=== PATIENT | female | born 1940 | race Caucasian/White ===

== ENCOUNTER 2022-04-24 13:34 | Emergency (ER) | payer MEDICARE, SELFPAY ==
[2022-04-24 13:42] VITALS: BP 139/85; PULSE 86; RESP 20; TEMP 36.6; O2SAT 99
[2022-04-24 13:45] VITALS: BP 139/85; PULSE 86; RESP 20; TEMP 36.6; O2SAT 99
--- NOTE | 2022-04-24 13:59 | ED.SKABFB ---
HPI - Skin/Abscess/Foreign Bdy General Chief complaint: Skin/Abscess/Foreign Body Stated complaint: hives Time Seen by Provider: 04/24/22 13:59 Source: patient, family, RN notes reviewed and old records reviewed Mode of arrival: ambulatory Limitations: no limitations History of Present Illness HPI narrative: 81 year old female who presents to [facility] with complaints of having hives all over body which started on Tuesday after her shower. She reports that she thought she could manage on own initially with Benadryl, Zyrtec and some Triamcinolone ointment and OTC hydrocortisone ointment. Patient reports that she called her doctor and he ordered her a Medrol dose pack on Tuesday and has had 2 days of medication but rash is so itchy she came to try to get a shot. Patient reports that the only thing different that she has taken is she started red yeast rice COQ10 supplement 2 weeks ago. Patient has large red hives on her body which are itching, denies any shortness of breath or any trouble swallowing, complaint: other (hives) Onset (ago): day(s) (3) Location: generalized Treatments prior to arrival: OTC topical medication, Benadryl, corticosteroid and other (zyrtec) Related Data Home Medications Medication Instructions Recorded Confirmed methylprednisolone 4 mg tablets in See Rx Instructions .Route .COMPLEX 04/24/22 04/24/22 a dose pack trazodone 50 mg tablet 50 mg PO DAILY 04/24/22 04/24/22 Allergies Allergy/AdvReac Type Severity Reaction Status Date / Time latex Allergy Unknown Rash Verified 04/24/22 13:43 Review of Systems Review of Systems: CONSTITUTIONAL: Denies fever, chills, or sweats. CARDIOVASCULAR: Denies chest pain, palpitations, or edema. RESPIRATORY: Denies cough or dyspnea. SKIN: Reports scattered round raised red hives generalized on body since Tuesday MUSCULOSKELETAL: Denies joint pain or myalgia. NEUROLOGIC: Denies headache, numbness, or weakness. All systems reviewed & are unremarkable except as noted in HPI and below PMFSH Past Medical History Medical History Adult hypothyroidism Chronic insomnia COPD (chronic obstructive pulmonary disease) Depression Eosinophilic colitis Pulmonary nodules/lesions, multiple Surgical History Surgical History History of cholecystectomy Family History Family History Grandparent Cerebrovascular accident Carcinoma of colon Father Family history of diabetes mellitus in first degree relative Family history of lung disease Family history of obesity Hypertension, Onset Age: 91 Family history of eczema Family history of alcoholism Family history of cardiovascular disease, Onset Age: 91 Family history of congestive heart failure, Onset Age: 91 Mother Family history of obesity Hypertension, Onset Age: 71 Carcinoma of colon, Onset Age: 55 Family history of diabetes mellitus in first degree relative Patient's mother is Diabetes mellitus, Onset Age: 71 Family history of malignant neoplasm, Onset Age: 71 Sibling Family history of obesity Hypertension Patient's sister is in good health Patient's brother is in good health Family history of diabetes mellitus in first degree relative Diabetes mellitus Other Family history of allergic disorder Family history of osteoporosis Social History Social History Smoking status: Former smoker Tobacco type: cigarettes Second hand tobacco smoke exposure: No Smoking end date: 03/21/18 Alcohol intake: never Substance use: never Substance use type: does not use Living arrangements: with family Occupation/Education: retired Gender identity (if verbalized by the patient): Female Comments At time of signature, agre
[2022-04-24] MEDS: methylPREDNISolone ACETATE 80 MG/ML VIAL IM (14:11)
== END 2022-04-24 14:30 | disposition home or self-care (01) ==
PROVIDERS: Emergency Provider Registered Nurse; PCP Internal Medicine
DX: L50.9 Urticaria, unspecified (principal); Z87.891 Personal history of nicotine dependence; E03.9 Hypothyroidism, unspecified; J44.9 Chronic obstructive pulmonary disease, unspecified; F32.A Depression, unspecified
CPT/HCPCS: 96372; 99213; G0463; J1040

== ENCOUNTER 2022-08-27 09:24 | Outpatient (CLI) | payer MEDICARE, SELFPAY ==
--- NOTE | 2022-08-27 11:00 | NEURO_ITS ---
Impression: Patient reports a history of numbness in the lower extremities and balance issues. 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 # Needle/EMG exam not requested. # Clinical correlation recommended. Nerve Conduction Studies Anti Sensory Summary Table Stim Site NR Peak (ms) P-T Amp (?V) Site1 Site2 Delta-P (ms) Dist (cm) Peterson (m/s) Left Sup Fibular Anti Sensory (Ant Lat Mall) 14 cm 3.6 7.3 14 cm Ant Lat Mall 3.6 16.0 44 Right Sup Fibular Anti Sensory (Ant Lat Mall) 14 cm 3.5 10.6 14 cm Ant Lat Mall 3.5 16.0 46 Left Sural Anti Sensory (Lat Mall) Calf 3.3 18.0 Calf Lat Mall 3.3 16.0 48 Right Sural Anti Sensory (Lat Mall) Calf 3.3 3.1 Calf Lat Mall 3.3 16.0 48 Motor Summary Table Stim Site NR Onset (ms) O-P Amp (mV) Site1 Site2 Delta-0 (ms) Dist (cm) Peterson (m/s) Left Peroneal Motor (Vastus Med) Ankle 5.4 2.7 Popit Ankle 9.6 41.0 43 Popit 15.0 2.2 B Fib Ankle 7.3 31.0 42 B Fib 12.7 2.2 Right Peroneal Motor (Vastus Med) Ankle 5.5 1.4 Popit Ankle 9.0 41.0 46 Popit 14.5 0.9 B Fib Ankle 7.0 30.0 43 B Fib 12.5 0.8 Left Tibial Motor (Abd Howard Brev) Ankle 5.2 3.4 Knee Ankle 8.2 40.0 49 Knee 13.4 3.6 Right Tibial Motor (Abd Howard Brev) Ankle 5.0 2.7 Knee Ankle 8.8 40.0 45 Knee 13.8 2.7 F Wave Studies NR F-Lat (ms) L-R F-Lat (ms) Left Peroneal (Mrkrs) (EDB) 54.58 1.75 Right Peroneal (Mrkrs) (EDB) 52.83 1.75 Left Tibial (Mrkrs) Run #2 (Abd Hallucis) 53.68 0.10 Right Tibial (Mrkrs) (Abd Hallucis) 53.58 0.10 MTDD
== END 2022-08-27 09:25 | disposition home or self-care (01) ==
PROVIDERS: PCP Internal Medicine; Visit Provider Internal Medicine
DX: G62.9 Polyneuropathy, unspecified (principal)
CPT/HCPCS: 95910

== ENCOUNTER 2025-01-15 14:57 | Outpatient (CLI) | payer MEDICARE, SELFPAY ==
--- OUTSIDE RECORDS SUMMARY | 2025-01-15 17:20 | XMS_ITS | Clinical Summary ---
Author Organization [facility] Address [address] [place] [address] Phone Care Team Providers Care Culinary Artist Name Role Phone Stacy Talbot Darron GARCIA, PAOLA Primary Care Provider Allergies No known active allergies Medications LEVOTHYROXINE SODIUM PO Take 50 mg by mouth 2 times daily. Active BUDESONIDE PO Take by mouth. Active Social History Tobacco Use Types Packs/Day Years Used Date Smoking Tobacco: Every Day Cigarettes Smokeless Tobacco: Never Alcohol Use Standard Drinks/Week Comments Not Currently 0 (1 standard drink = 0.6 oz pur e alcohol) Comments Unknown Sex and Gender Information Value Date Recorded Sex Assigned at Not on file Legal Sex Female 11:16 PM CDT Gender Identity Not on file Sexual Orientation Not on file Last Filed Vital Signs Vital Sign Reading Time Taken Comments Blood Pressure 97/55 04/10/2020 3:30 PM QUALITY MANAGEMENT NURSE Pulse 61 04/10/2020 3:30 PM QUALITY MANAGEMENT NURSE Temperature 36.7 C (98 F) 04/10/2020 2:11 PM QUALITY MANAGEMENT NURSE Respiratory Rate 21 04/10/2020 3:30 PM QUALITY MANAGEMENT NURSE Oxygen Saturation 95% 04/10/2020 3:30 PM QUALITY MANAGEMENT NURSE Inhaled Oxygen Concentration - - Weight 47.6 kg (105 lb) 04/10/2020 2:12 PM QUALITY MANAGEMENT NURSE Height 162.6 cm (5' 4) 04/10/2020 2:12 PM QUALITY MANAGEMENT NURSE Body Mass Index 18.02 04/10/2020 2:12 PM QUALITY MANAGEMENT NURSE Plan of Treatment Health Maintenance Due Date Last Done Comments Hepatitis C Virus (HCV) Screening 1940 TdaP Immunization 1940 Pneumococcal Immunization (50+ years) (1 of 1 - PCV) 1990 Respiratory Syncytial Virus (RSV) Immunization (Adult) (1 - 1-dose 75+ series) 08/16/2015 Medicare Initial AWV [id number] 03/21/2021 Influenza Immunization (#1) 2024 10/0 04/2019, 12/21/2019, 12/30/2018, Additional history exists SARS-COV-2 Immunization (2024- season) 2024 01/14/2021, 05/23/2020, 05/03/2020 Zoster Immunization Completed 10/04/2017, 8 Hepatitis B Immunization Aged Out No longer eligible based on patient's age to complete this topic Human Papillomavirus (HPV) Immunization Aged Out No longer eligible based on patient's age to complete this topic Meningococcal Immunization (ACWY) Aged Out No longer eligible based on patient's age to complete this topic Rotavirus Immunization Aged Out No lo nger eligible based on patient's age to complete [place] [address] MEDICARE C [facility] [place] [id number] Care Teams Culinary Artist Relationship Specialty Start Date End Date Stacy Talbot, MANAGER FIBER, [employer] [address] [place] [address] PCP - General Family Medicine 04/10/20
--- OUTSIDE RECORDS SUMMARY | 2025-01-15 17:20 | XMS_ITS | Data Portability ---
Author Organization [facility] Photoblog, Main Office Address [address] [place] [address] Assessment No assessment recorded. Plan of Treatment Reminders Order Date Submit Date Provider Last Modified By Organization Details Last Modified Time Details Appointments None recorded. Lab vitamin D, 25-hydrox y, total, serum [address] [facility], [address] [place], [address], 5 11:20:57 C-reactiv e protein, quantitat kavin, serum or plasma [address] [facility], [address] [place], [address], 5 11:20:57 lipid panel, serum [facility], [address] [place], [address], 5 17:05:18 CMP, serum or plasma [facility], [address] [place], [address], 5 17:05:25 CBC w/ auto diff [facility] Out[facility] Lab, [address] [place], [address], 5 15:22:41 TSH, serum or plasma [facility], [address] [place], [address], 5 17:25:44 T4, free, serum 025 025 [facility] Outpatient Lab, [address] [place], [address], 5 17:10:34 vitamin D, 25-hydrox y, total, serum [id number] [place] [address] Outpatient Lab, [address] [place], [address], 5 14:57:09 lipid panel, serum [id number] [place] [address] Outpatient Lab, [address] [place], [address], 5 14:57:07 CMP, serum or plasma [id number] [place] [address] Outpatient Lab, [address] [place], [address], 5 14:57:08 TSH, serum or plasma [id number] [place] [address] Outpatient Lab, [address] [place], [address], 5 14:57:08 T4, free, serum [id number] [place] [address] Outpatient Lab, [address] [place], [address], 5 14:57:08 CBC w/ auto diff [id number] [place] [address] Outpatient Lab, [address] [place], [address], 5 14:57:08 lipid panel, serum 024 024 [facility] Outpatient Lab, [address] [place], [address], 4 13:36:27 CMP, serum or plasma 024 [facility] Outpatient Lab, [address] [place], [address], 4 13:36:39 TSH, serum or plasma 024 [facility] Outpatient Lab, [address] [place], [address], 4 13:42:17 T4, free, serum 024 [facility] Outpatient Lab, [address] [place], [address], 4 13:36:42 CBC w/ auto diff 024 [facility] Outpatient Lab, [address] [place], [address], 4 12:48:14 TSH, serum or plasma 023 023 [facility] Outpatient Lab, [address] [place], [address], 3 18:25:44 T4, free, serum 023 023 [facility] Outpatient Lab, [address] [place], [address], 3 18:22:41 CMP, serum or plasma 023 [facility] Outpatient Lab, [address] [place], [address], 3 18:26:37 CBC w/ auto diff 023 023 [facility] Outpatient Lab, [address] [place], [address], 3 15:06:15 vitamin B12, serum 023 023 [facility], [address] [place], [address], 18:43:12 Referral None recorded. Procedures None recorded. Surgeries None recorded. Imaging None recorded. Medication Orders None recorded. Patient TargetsNo targets recorded. Patient Instructions Encounter Date Encounter Id Patient Instructions Last Modified By Organization Details Last Modified Time 01/14/2023 [id number] Follow-up collagenous colitis -hypothyroidism -neuropathy. All clinically stable. Will check blood work in the form of CBC, CMP, lipid and B12 level. Continue on current Rx I recommended use of a cane or walker to assist her in ambulation particularly when walking outside or on uneven surfaces. Also described to her the need to hand picker all throw rugs and other floor items that may precipitate are aggravate falls. Standard immunizations of RSV, COVID, influenza and shingles as recommended. Portions of the record may have been created with voice recognition software. Occasional wrong-word or s ound-a-like substitutions may have occurred due to the inherent limitations of voice recognition software. Read the chart carefully and recognize, using context, where substitutions have occurred. [email or web address] Not available 01/14/2023 11:49:18 07/15/2023 [id number] Follow-up hypothyroidism, hyperlipidemia and collagenous colitis. Will check blood work consisting of CBC thyroid and lipid panel. Continue on current Rx follow-up in six months Next Appointment: 6 Months Approximate Date: 01/11/2024 Portions of the record may have been created with voice recognition software. Occasional wrong-word or s ound-a-like substitutions may have occurred due to the inherent limitations of voice recognition software. Read the chart carefully and recognize, using context, where substitutions have occurred. [email or web address] Not available 07/15/2023 11:32:59 01/12/2024 [id number] dementia rating scale-2* [email or web address] Not available 01/12/2024 11:22:11 alcohol misuse* [email or web address] Not available 01/12/2024 11:22:11 depression screening* [email or web address] Not available 01/12/2024 11:22:11 Timed Up and Go test (TUG)* [email or web address] Not available 01/12/2024 11:22:11 multi-dimensiona l health assessment questionnaire* Not available 01/12/2024 11:22:11 Personalized Hea lth Plan and Screening Recommendations Advance Directives - Do you have one? Yes Advance Directives - Do we have your advance directive on file in your health record? No, please bring in a copy at your earliest convenience Primary Prevention/Interven tion (prevents or decreases the chance of common diseases from occurring) Smoking Risk: Non Smoker Alcohol Misuse Screening: Negative Weight: Appropriate Physical activity: Need more exercise/physical activity Nutrition: Average Eat heart healthy diet Fall Risk (screened today): Low Vaccines Pneumococcal: No further needed Influenza: Your next one in the fall of this year Chronic Disease Risks Stroke: Intermediate Risk Active diagnosis, Continue current treatment plan Heart Attack: Intermediate Risk Active diagnosis, Continue current treatment plan Clogging of the Arteries: Intermediate Risk Active diagnosis, Continue current treatment plan Diabetes: Low Risk I have no recommendations Secondary Prevention/Interven tion (detects treatable diseases before they may cause symptoms, disability, or ) Breast Cancer Screening with mammogram: No screening necessary Cervical/Uterine/Ov tucker Cancer Screening: No screening necessary Osteoporosis Screening: No screening necessary Date Screening Last Performed: Colon Cancer Screening: Colonoscopy No screening necessary Date Screening Last Performed: ___2016__ Eye Disease Screening: Your next exam in: goes yearly Dementia Risk: Low I have no recommendations Depression Screening: Negative I have no recommendations [email or web address] Not available 01/12/2024 11:06:53 Medicare wellnes s evaluation risk assessment stable. Continue on current medications follow-up in six months Follow Up: 6 Months Approximate Date: 07/10/2024 Portions of the record may have been created with voice recognition software. Occasional wrong-word or s ound-a-like substitutions may have occurred due to the inherent limitations of voice recognition software. Read the chart carefully and recognize, using context, where substitutions have occurred. [email or web address] Not available 01/12/2024 11:21:53 07/12/2024 [id number] Collagenous colitis, hyperlipidemia, hypothyroidism. Check blood work consisting of CBC, CMP, lipid, thyroid and vitamin-D level. Continue on current Rx check back in six months Follow Up: 6 Months Approximate Date: 01/08/2025 Portions of record are template driven. When necessary additional context will be provided. Additionally some portions have been created with voice recognition software. Occasional wrong-word or s ound-a-like substitutions may have occurred due to the inherent limitations of voice recognition software. Read the chart carefully and recognize, using context, where substitutions may have occurred. Created: Jose Manuel Burk M.D. 07.12.2024 10:52 AM Not available 07/12/2024 11:52:33 01/10/2025 [id number] Follow-up for hyperlipidemia, hypothyroidism as well as collagenous colitis all clinically stable. Will check blood work consisting of CBC, CMP, lipid, thyroid and CRP. Will also check a vitamin-D level. Continue on current Rx follow-up in six months Follow Up: 6 Months Approximate Date: 07/09/2025 Portions of record are template driven. When necessary additional context will be provided. Additionally some portions have been created with voice recognition software. Occasional wrong-word or s ound-a-like substitutions may have occurred due to the inherent limitations of voice recognition software. Read the chart carefully and recognize, using context, where substitutions may have occurred. Created: Jose Manuel Burk M.D. 01.10.2025 10:15 AM Not available 01/10/2025 11:15:29 Reason for Referral None Reported. Results Created Date Observation Date Name Description Value Unit Range Abnormal Flag Note LastModifiedBy Organization Detail LastModifiedTime 01/15/2001/14/2023 CBC/C OMPLE TE BLD COUNT W/DIF F white blood cells 6.2 x10'3 /uL 4.2-10 .8 Not Available [facility] (Lab) [address] [place], [address], 01/14/2023 15:06:15 01/15/2001/14/2023 CBC/C OMPLE TE BLD COUNT W/DIF F red blood cells 4.82 x10'6 /uL 3.80-5 .20 Not Available [facility] (Lab) [address] [place], [address], 01/14/2023 15:06:15 10/27/20 23 01/14/2023 CBC/C OMPLE TE BLD COUNT W/DIF F hemoglobin 14.1 g/dL 12.0-1 5.6 Not Available [facility] (Lab) [address] [facility] [place], [address], 01/14/2023 15:06:15 01/15/2001/14/2023 CBC/C OMPLE TE BLD COUNT W/DIF F hematocrit 43.6 % 35.7-4 5.7 Not Available [facility] (Lab) [address] [place], [address], 01/14/2023 15:06:15 01/15/2001/14/2023 CBC/C OMPLE TE BLD COUNT W/DIF F mean red cell volume 90.5 fL 82.0-9 9.0 Not Available [facility] (Lab) [address] [place], [address], 01/14/2023 15:06:15 01/15/2001/14/2023 CBC/C OMPLE TE BLD COUNT W/DIF F mean red cell hemoglobin 29.3 pg 27.0-3 3.0 Not Available [facility] (Lab) [address] [place], [address], 01/14/2023 15:06:15 01/15/2001/14/2023 CBC/C OMPLE TE BLD COUNT W/DIF F mean RBC HGB concentratio n 32.3 g/dL 31.0-3 6.0 Not Available [facility] (Lab) [address] [place], [address], 01/14/2023 15:06:15 01/15/2001/14/2023 CBC/C OMPLE TE BLD COUNT W/DIF F red cell distribution width 14.2 % 11.8-1 5.5 Not Available [facility] (Lab) [address] [place], [address], 01/14/2023 15:06:15 01/15/2001/14/2023 CBC/C OMPLE TE BLD COUNT W/DIF F platelets 199 x10'3 /uL 150-40 0 Not Available [facility] (Lab) [address] [place], [address], 01/14/2023 15:06:15 01/15/2001/14/2023 CBC/C OMPLE TE BLD COUNT W/DIF F mean platelet volume 10.9 fL 9.0-12 .4 Not Available [facility] (Lab) [address] [place], [address], 01/14/2023 15:06:15 01/15/2001/14/2023 CBC/C OMPLE TE BLD COUNT W/DIF F neutrophils 40.8 % 39.0-7 2.0 Not Available [facility] (Lab) [address] [place], [address], 01/14/2023 15:06:15 01/15/2001/14/2023 CBC/C OMPLE TE BLD COUNT W/DIF F lymphocytes 46.8 % 16.0-4 7.0 Not Available [facility] (Lab) [address] [place], [address], 01/14/2023 15:06:15 01/15/2001/14/2023 CBC/C OMPLE TE BLD COUNT W/DIF F monocytes 5.8 % 5.0-12 .0 Not Available [facility] (Lab) [address] [place], [address], 01/14/2023 15:06:15 01/15/2001/14/2023 CBC/C OMPLE TE BLD COUNT W/DIF F eosinophils 5.1 % 1.0-7. 0 Not Available [facility] (Lab) [address] [place], [address], 01/14/2023 15:06:15 01/15/2001/14/2023 CBC/C OMPLE TE BLD COUNT W/DIF F basophils 1.3 % 0.0-2. 0 Not Available [facility] (Lab) [address] [place], [address], 01/14/2023 15:06:15 01/15/2001/14/2023 CBC/C OMPLE TE BLD COUNT W/DIF F immature granulocytes 0.2 % 0.00-0 .50 Not Available [facility] (Lab) [address] [place], [address], 01/14/2023 15:06:15 01/15/2001/14/2023 CBC/C OMPLE TE BLD COUNT W/DIF F neutrophils, absolute count 2.55 x10'3 /uL 1.5-8. 0 Not Available [facility] (Lab) [address] [place], [address], 01/14/2023 15:06:15 01/15/2001/14/2023 CBC/C OMPLE TE BLD COUNT W/DIF F lymphocytes, absolute count 2.92 x10'3 /uL 1.07-3 .43 Not Available [facility] (Lab) [address] [place], [address], 01/14/2023 15:06:15 01/15/2001/14/2023 CBC/C OMPLE TE BLD COUNT W/DIF F monocytes, absolute count 0.36 x10'3 /uL 0.29-0 .99 Not Available [facility] (Lab) [address] [place], [address], 01/14/2023 15:06:15 01/15/2001/14/2023 CBC/C OMPLE TE BLD COUNT W/DIF F eosinophils, absolute count 0.32 x10'3 /uL 0.02-0 .53 Not Available [facility] (Lab) [address] [place], [address], 01/14/2023 15:06:15 01/15/2001/14/2023 CBC/C OMPLE TE BLD COUNT W/DIF F basophils, absolute count 0.08 x10'3 /uL 0.01-0 .08 Not Available [facility] (Lab) [address] [place], [address], 01/14/2023 15:06:15 01/15/2001/14/2023 CBC/C OMPLE TE BLD COUNT W/DIF F immature granulocytes ,absolute 0.01 x10'3 /uL 0.00-0 .05 Not Available [facility] (Lab) [address] [place], [address], 01/14/2023 15:06:15 01/15/2001/14/2023 CBC/C OMPLE TE BLD COUNT W/DIF F nucleated red blood cells 0.0 % -0 Not Available [facility] (Lab) [address] [place], [address], 01/14/2023 15:06:15 01/15/2001/14/2023 CBC/C OMPLE TE BLD COUNT W/DIF F NRBC# 0.00 x10'3 /uL Not Available [facility] (Lab) [address] [place], [address], 01/14/2023 15:06:15 01/15/2001/14/2023 T4 FREE free T4 1.70 NG/dL 0.78-2 .19 Not Available [facility] (Lab) [address] [place], [address], 01/14/2023 18:22:41 01/15/2001/14/2023 TSH thyroid-stim ulating hormone 0.797 uIU/m L 0.465- 4.680 Not Available [facility] (Lab) [address] [place], [address], 01/14/2023 18:25:43 01/15/2001/14/2023 COMPR EHENS KAVIN METAB OLIC PANEL sodium 139 mmol/ L 137-14 5 Not Available [facility] (Lab) [address] [place], [address], 01/14/2023 18:26:36 01/15/2001/14/2023 COMPR EHENS KAVIN METAB OLIC PANEL potassium 3.9 mmol/ L 3.5-5. 1 Not Available [facility] (Lab) [address] [place], [address], 01/14/2023 18:26:36 01/15/2001/14/2023 COMPR EHENS KAVIN METAB OLIC PANEL chloride 104 mmol/ L 98-107 Not Available [facility] (Lab) [address] [place], [address], 01/14/2023 18:26:36 01/15/2001/14/2023 COMPR EHENS KAVIN METAB OLIC PANEL carbon dioxide 28 mmol/ L 22-30 Not Available [facility] (Lab) [address] [place], [address], 01/14/2023 18:26:36 01/15/2001/14/2023 COMPR EHENS KAVIN METAB OLIC PANEL anion gap 10.9 mmol/ L 14-22 low Not Available [facility] (Lab) [address] [place], [address], 01/14/2023 18:26:36 01/15/2001/14/2023 COMPR EHENS KAVIN METAB OLIC PANEL glucose 139 mg/dL 70-99 high Not Available [facility] (Lab) [address] [place], [address], 01/14/2023 18:26:36 01/15/20 23 01/14/2023 COMPR EHENS KAVIN METAB OLIC PANEL BUN 15 mg/dL 8-19 Not Available [facility] (Lab) [address] [place], [address], 01/14/2023 18:26:36 01/15/2001/14/2023 COMPR EHENS KAVIN METAB OLIC PANEL creatinine 1.02 mg/dL 0.66-1 .25 Not Available [facility] (Lab) [address] [place], [address], 01/14/2023 18:26:36 01/15/2001/14/2023 COMPR EHENS KAVIN METAB OLIC PANEL GFR 52 Refer ence Range : Jemison ge GFR Healt hy Adult : >60 mL/mi n/1.7 3 m2 Chron ic Kidne y Disea se: 15-60 mL/mi n/1.7 3 m2 Kidne y Failu re: <15/m L/min /1.73 m2 www.n iddk. nih.g ov The MDRD study equat ion has not been valid ated in child fito <18 years of age; pregn ant women ; the elder ly >85 years of age; or in some racia l or ethni c subgr oups, such as Hisor nics. Outsi de the valid ated geovanna eters , estim ated GFR is less accur ate, requi ring clini wilbert judgm ent on a case- by-ca se basis . Clini wilbert inter preta tion for other races and ages must be made by the clini jesus. The MDRD study equat ion has not been valid ated for the evalu ation of serum creat inine relat ed to nutri pro l statu s or medic ation usage . For perso ns <18 years of age, a pedia tric GFR calcu lator is avail able on the F websi te: https ://aaron smiley.james sanchez/pr valeess dayannaal s/kdo qi/gf r_cal culat or Not Available [facility] (Lab) [address] [place], [address], 01/14/2023 18:26:36 01/15/2001/14/2023 COMPR EHENS KAVIN METAB OLIC PANEL alkaline phosphatase 66 U/L 38-126 Not Available [facility] (Lab) [address] [place], [address], 01/14/2023 18:26:36 01/15/2001/14/2023 COMPR EHENS KAVIN METAB OLIC PANEL alanine aminotransfe rase 20 U/L 0-35 Not Available [facility] (Lab) [address] [place], [address], 01/14/2023 18:26:36 01/15/2001/14/2023 COMPR EHENS KAVIN METAB OLIC PANEL aspartate aminotransfe rase 30 U/L 15-37 Not Available [facility] (Lab) [address] [place], [address], 01/14/2023 18:26:36 01/15/2001/14/2023 COMPR EHENS KAVIN METAB OLIC PANEL bilirubin, total 1.00 mg/dL 0.20-1 .30 Not Available [facility] (Lab) [address] [place], [address], 01/14/2023 18:26:36 01/15/2001/14/2023 COMPR EHENS KAVIN METAB OLIC PANEL calcium 9.6 mg/dL 8.4-10 .2 Not Available [facility] (Lab) [address] [place], [address], 01/14/2023 18:26:36 01/15/2001/14/2023 COMPR EHENS KAVIN METAB OLIC PANEL total protein 7.9 g/dL 6.3-8. 2 Not Available [facility] (Lab) [address] [place], [address], 01/14/2023 18:26:36 01/15/20 23 01/14/2023 COMPR EHENS KAVIN METAB OLIC PANEL albumin 4.6 g/dL 3.0-4. 4 high Not Available [facility] (Lab) [address] [place], [address], 01/14/2023 18:26:36 01/15/20 23 01/14/2023 COMPR EHENS KAVIN METAB OLIC PANEL globulin 3.3 g/dL 2.6-4. 2 Not Available [facility] (Lab) [address] [place], [address], 01/14/2023 18:26:36 01/15/2001/14/2023 COMPR EHENS KAVIN METAB OLIC PANEL A/G ratio 1.4 ratio 1.0-2. 0 Not Available [facility] (Lab) [address] [place], [address], 01/14/2023 18:26:36 01/15/2001/14/2023 VITAM IN B12 (MICKY DENISSE ) vb12 975 pg/mL 239-93 1 high Not Available [facility] (Lab) [address] [place], [address], 01/14/2023 18:43:12 07/15/19 24 07/15/2023 CBC/C OMPLE TE BLD COUNT W/DIF F white blood cells 7.6 x10'3 /uL 4.2-10 .8 Not Available [facility] (Lab) [address] [place], [address], 07/15/2023 12:48:14 07/15/19 24 07/15/2023 CBC/C OMPLE TE BLD COUNT W/DIF F red blood cells 4.64 x10'6 /uL 3.80-5 .20 Not Available [facility] (Lab) [address] [place], [address], 07/15/2023 12:48:14 07/15/19 24 07/15/2023 CBC/C OMPLE TE BLD COUNT W/DIF F hemoglobin 13.7 g/dL 12.0-1 5.6 Not Available [facility] (Lab) [address] [place], [address], 07/15/2023 12:48:14 07/15/19 24 07/15/2023 CBC/C OMPLE TE BLD COUNT W/DIF F hematocrit 41.9 % 35.7-4 5.7 Not Available [facility] (Lab) [address] [place], [address], 07/15/2023 12:48:14 07/15/19 24 07/15/2023 CBC/C OMPLE TE BLD COUNT W/DIF F mean red cell volume 90.3 fL 82.0-9 9.0 Not Available [facility] (Lab) [address] [place], [address], 07/15/2023 12:48:14 07/15/19 24 07/15/2023 CBC/C OMPLE TE BLD COUNT W/DIF F mean red cell hemoglobin 29.5 pg 27.0-3 3.0 Not Available [facility] (Lab) [address] [place], [address], 07/15/2023 12:48:14 07/15/19 24 07/15/2023 CBC/C OMPLE TE BLD COUNT W/DIF F mean RBC HGB concentratio n 32.7 g/dL 31.0-3 6.0 Not Available [facility] (Lab) [address] [place], [address], 07/15/2023 12:48:14 07/15/19 24 07/15/2023 CBC/C OMPLE TE BLD COUNT W/DIF F red cell distribution width 14.2 % 11.8-1 5.5 Not Available [facility] (Lab) [address] [place], [address], 07/15/2023 12:48:14 07/15/19 24 07/15/2023 CBC/C OMPLE TE BLD COUNT W/DIF F platelets 189 x10'3 /uL 150-40 0 Not Available [facility] (Lab) [address] [place], [address], 07/15/2023 12:48:14 07/15/19 24 07/15/2023 CBC/C OMPLE TE BLD COUNT W/DIF F mean platelet volume 10.3 fL 9.0-12 .4 Not Available [facility] (Lab) [address] [place], [address], 07/15/2023 12:48:14 07/15/19 24 07/15/2023 CBC/C OMPLE TE BLD COUNT W/DIF F neutrophils 41.1 % 39.0-7 2.0 Not Available [facility] (Lab) [address] [place], [address], 07/15/2023 12:48:14 07/15/19 24 07/15/2023 CBC/C OMPLE TE BLD COUNT W/DIF F lymphocytes 52.0 % 16.0-4 7.0 high Not Available [facility] (Lab) [address] [place], [address], 07/15/2023 12:48:14 07/15/19 24 07/15/2023 CBC/C OMPLE TE BLD COUNT W/DIF F monocytes 5.6 % 5.0-12 .0 Not Available [facility] (Lab) [address] [place], [address], 07/15/2023 12:48:14 07/15/19 24 07/15/2023 CBC/C OMPLE TE BLD COUNT W/DIF F eosinophils 0.0 % 1.0-7. 0 low Not Available [facility] (Lab) [address] [place], [address], 07/15/2023 12:48:14 07/15/19 24 07/15/2023 CBC/C OMPLE TE BLD COUNT W/DIF F basophils 1.0 % 0.0-2. 0 Not Available [facility] (Lab) [address] [place], [address], 07/15/2023 12:48:14 07/15/19 24 07/15/2023 CBC/C OMPLE TE BLD COUNT W/DIF F immature granulocytes 0.3 % 0.00-0 .50 Not Available [facility] (Lab) [address] [place], [address], 07/15/2023 12:48:14 07/15/19 24 07/15/2023 CBC/C OMPLE TE BLD COUNT W/DIF F neutrophils, absolute count 3.14 x10'3 /uL 1.5-8. 0 Not Available [facility] (Lab) [address] [place], [address], 07/15/2023 12:48:14 07/15/19 24 07/15/2023 CBC/C OMPLE TE BLD COUNT W/DIF F lymphocytes, absolute count 3.97 x10'3 /uL 1.07-3 .43 high Not Available [facility] (Lab) [address] [place], [address], 07/15/2023 12:48:14 07/15/19 24 07/15/2023 CBC/C OMPLE TE BLD COUNT W/DIF F monocytes, absolute count 0.43 x10'3 /uL 0.29-0 .99 Not Available [facility] (Lab) [address] [place], [address], 07/15/2023 12:48:14 07/15/19 24 07/15/2023 CBC/C OMPLE TE BLD COUNT W/DIF F eosinophils, absolute count 0.00 x10'3 /uL 0.02-0 .53 low Not Available [facility] (Lab) [address] [place], [address], 07/15/2023 12:48:14 07/15/19 24 07/15/2023 CBC/C OMPLE TE BLD COUNT W/DIF F basophils, absolute count 0.08 x10'3 /uL 0.01-0 .08 Not Available [facility] (Lab) [address] [place], [address], 07/15/2023 12:48:14 07/15/19 24 07/15/2023 CBC/C OMPLE TE BLD COUNT W/DIF F immature granulocytes ,absolute 0.02 x10'3 /uL 0.00-0 .05 Not Available [facility] (Lab) [address] [place], [address], 07/15/2023 12:48:14 07/15/19 24 07/15/2023 CBC/C OMPLE TE BLD COUNT W/DIF F nucleated red blood cells 0.0 % -0 Not Available [facility] (Lab) [address] [place], [address], 07/15/2023 12:48:14 07/15/1907/15/2023 CBC/C OMPLE TE BLD COUNT W/DIF F NRBC# 0.00 x10'3 /uL Not Available [facility] (Lab) [address] [place], [address], 07/15/2023 12:48:14 07/15/1907/15/2023 LIPID PANEL cholesterol 242 mg/dL 140-19 9 high NIH MARY NSUS RECOM MENDA TION FOR NAIN STERO L: ADULT CHILD LOW RISK: <200 <170 BORDE RLINE : <200- 239 ----- HIGH RISK: >240 >200 Not Available [facility] [facility] (Lab) [address] [place], [address], 07/15/2023 13:36:27 07/15/19 24 07/15/2023 LIPID PANEL triglyceride s 164 mg/dL 0-150 high NIH MARY NSUS REPOR T RECOM MENDA TION FOR TRIGL YCERI EDMOND: ADULT CHILD LOW RISK: <150 ----- BODER LINE: 150-1 99 ----- HIGH RISK: >200 ----- Not Available [facility] (Lab) [address] [place], [address], 07/15/2023 13:36:27 07/15/19 24 07/15/2023 LIPID PANEL HDL cholesterol 63 mg/dL 40- Not Available [facility] (Lab) [address] [place], [address], 07/15/2023 13:36:27 07/15/19 24 07/15/2023 LIPID PANEL LDL cholesterol, calculated 146 mg/dL 0-130 high NIH MARY NSUS REPOR T RECOM MENDA TIONS FOR LDL: ADULT CHILD LOW RISK <130 <110 (OPTI MAL LDL) <100 ----- LUKAS RLINE : 130-1 59 ----- HIGH RISK: >160 >130 A TRIGL YCERI DE RESUL T >400 INVAL IDATE S THE CALCU LATIO N FOR LDL FRACT IONAT ION - THE LDL RESUL T WILL NOT BE REPOR TEMITOPE. Not Available [facility] (Lab) [address] [place], [address], 07/15/2023 13:36:27 07/15/19 24 07/15/2023 COMPR EHENS KAVIN METAB OLIC PANEL sodium 140 mmol/ L 137-14 5 Not Available [facility] (Lab) [address] [place], [address], 07/15/2023 13:36:39 07/15/19 24 07/15/2023 COMPR EHENS KAVIN METAB OLIC PANEL potassium 4.5 mmol/ L 3.5-5. 1 Not Available [facility] (Lab) [address] [place], [address], 07/15/2023 13:36:39 07/15/19 24 07/15/2023 COMPR EHENS KAVIN METAB OLIC PANEL chloride 105 mmol/ L 98-107 Not Available [facility] (Lab) [address] [place], [address], 07/15/2023 13:36:39 07/15/19 24 07/15/2023 COMPR EHENS KAVIN METAB OLIC PANEL carbon dioxide 28 mmol/ L 22-30 Not Available [facility] (Lab) [address] [place], [address], 07/15/2023 13:36:39 07/15/19 24 07/15/2023 COMPR EHENS KAVIN METAB OLIC PANEL anion gap 11.5 mmol/ L 14-22 low Not Available [facility] (Lab) [address] [place], [address], 07/15/2023 13:36:39 07/15/19 24 07/15/2023 COMPR EHENS KAVIN METAB OLIC PANEL glucose 98 mg/dL 70-99 Not Available [facility] (Lab) [address] [place], [address], 07/15/2023 13:36:39 07/15/19 24 07/15/2023 COMPR EHENS KAVIN METAB OLIC PANEL BUN 17 mg/dL 8-19 Not Available [facility] (Lab) [address] [place], [address], 07/15/2023 13:36:39 07/15/19 24 07/15/2023 COMPR EHENS KAVIN METAB OLIC PANEL creatinine 0.90 mg/dL 0.66-1 .25 Not Available [facility] (Lab) [address] [place], [address], 07/15/2023 13:36:39 07/15/19 24 07/15/2023 COMPR EHENS KAVIN METAB OLIC PANEL GFR 60 Refer ence Range : Jemison ge GFR Healt hy Adult : >60 mL/mi n/1.7 3 m2 Chron ic Kidne y Disea se: 15-60 mL/mi n/1.7 3 m2 Kidne y Failu re: <15/m L/min /1.73 m2 www.n iddk. nih.g ov The MDRD study equat ion has not been valid ated in child fito <18 years of age; pregn ant women ; the elder ly >85 years of age; or in some racia l or ethni c subgr oups, such as Hispa nics. Outsi de the valid ated geovanna eters , estim ated GFR is less accur ate, requi ring clini wilbert judgm ent on a case- by-ca se basis . Clini wilbert inter preta tion for other races and ages must be made by the clini jesus. The MDRD study equat ion has not been valid ated for the evalu ation of serum creat inine relat ed to nutri pro l statu s or medic ation usage . For perso ns <18 years of age, a pedia tric GFR calcu lator is avail able on the [facility] websi te: https ://aaron w.denzel palmery.o rg/pr ofess ional s/kdo qi/gf r_cal culat or Not Available [facility] (Lab) [address] [place], [address], 07/15/2023 13:36:39 07/15/19 24 07/15/2023 COMPR EHENS KAVIN METAB OLIC PANEL alkaline phosphatase 74 U/L 38-126 Not Available [facility] (Lab) [address] [place], [address], 07/15/2023 13:36:39 07/15/19 24 07/15/2023 COMPR EHENS KAVIN METAB OLIC PANEL alanine aminotransfe rase 15 U/L 0-35 Not Available [facility] (Lab) [address] [place], [address], 07/15/2023 13:36:39 07/15/19 24 07/15/2023 COMPR EHENS KAVIN METAB OLIC PANEL aspartate aminotransfe rase 29 U/L 15-37 Not Available [facility] (Lab) [address] [place], [address], 07/15/2023 13:36:39 07/15/19 24 07/15/2023 COMPR EHENS KAVIN METAB OLIC PANEL bilirubin, total 1.20 mg/dL 0.20-1 .30 Not Available [facility] (Lab) [address] [place], [address], 07/15/2023 13:36:39 07/15/19 24 07/15/2023 COMPR EHENS KAVIN METAB OLIC PANEL calcium 9.6 mg/dL 8.4-10 .2 Not Available [facility] (Lab) [address] [place], [address], 07/15/2023 13:36:39 07/15/19 24 07/15/2023 COMPR EHENS KAVIN METAB OLIC PANEL total protein 7.9 g/dL 6.3-8. 2 Not Available [facility] (Lab) [address] [place], [address], 07/15/2023 13:36:39 07/15/19 24 07/15/2023 COMPR EHENS KAVIN METAB OLIC PANEL albumin 4.7 g/dL 3.0-4. 4 high Not Available [facility] (Lab) [address] [place], [address], 07/15/2023 13:36:39 07/15/19 24 07/15/2023 COMPR EHENS KVAIN METAB OLIC PANEL globulin 3.2 g/dL 2.6-4. 2 Not Available [facility] (Lab) [address] [place], [address], 07/15/2023 13:36:39 07/15/19 24 07/15/2023 COMPR EHENS KAVIN METAB OLIC PANEL A/G ratio 1.5 ratio 1.0-2. 0 Not Available [facility] (Lab) [address] [place], [address], 07/15/2023 13:36:39 07/15/19 24 07/15/2023 T4 FREE free T4 1.43 NG/dL 0.78-2 .19 Not Available [facility] (Lab) [address] [place], [address], 07/15/2023 13:36:42 07/15/19 24 07/15/2023 TSH thyroid-stim ulating hormone 1.270 uIU/m L 0.465- 4.680 Not Available [facility] (Lab) [address] [place], [address], 07/15/2023 13:42:17 01/11/2001/10/2025 CBC/C OMPLE TE BLD COUNT W/DIF F white blood cells 17.2 x10'3 /uL 4.2-10 .8 high Not Available [facility] (Lab) [address] [place], [address], 01/10/2025 16:04:53 01/11/2001/10/2025 CBC/C OMPLE TE BLD COUNT W/DIF F red blood cells 4.88 x10'6 /uL 4.10-5 .80 Not Available [facility] (Lab) [address] [place], [address], 01/10/2025 16:04:53 01/11/2001/10/2025 CBC/C OMPLE TE BLD COUNT W/DIF F hemoglobin 13.9 g/dL 13.2-1 7.0 Not Available [facility] (Lab) [address] [place], [address], 01/10/2025 16:04:53 01/11/20 25 01/10/2025 CBC/C OMPLE TE BLD COUNT W/DIF F hematocrit 43.7 % 39.3-5 0.0 Not Available [facility] (Lab) [address] [place], [address], 01/10/2025 16:04:53 01/11/2001/10/2025 CBC/C OMPLE TE BLD COUNT W/DIF F mean red cell volume 89.5 fL 80.0-9 7.0 Not Available [facility] (Lab) [address] [place], [address], 01/10/2025 16:04:53 01/11/2001/10/2025 CBC/C OMPLE TE BLD COUNT W/DIF F mean red cell hemoglobin 28.5 pg 27.0-3 3.0 Not Available [facility] (Lab) [address] [place], [address], 01/10/2025 16:04:53 01/11/2001/10/2025 CBC/C OMPLE TE BLD COUNT W/DIF F mean RBC HGB concentratio n 31.8 g/dL 31.0-3 6.0 Not Available [facility] (Lab) [address] [facility] [place], [address], 01/10/2025 16:04:53 01/11/2001/10/2025 CBC/C OMPLE TE BLD COUNT W/DIF F red cell distribution width 14.6 % 11.8-1 5.5 Not Available [facility] (Lab) [address] [place], [address], 01/10/2025 16:04:53 01/11/2001/10/2025 CBC/C OMPLE TE BLD COUNT W/DIF F platelets 226 x10'3 /uL 150-40 0 Not Available [facility] (Lab) [address] [place], [address], 01/10/2025 16:04:53 01/11/20 25 01/10/2025 CBC/C OMPLE TE BLD COUNT W/DIF F mean platelet volume 11.0 fL 9.0-12 .4 Not Available [facility] (Lab) [address] [place], [address], 01/10/2025 16:04:53 01/11/2001/10/2025 CBC/C OMPLE TE BLD COUNT W/DIF F neutrophils 24 % 39.0-7 2.0 low Not Available [facility] (Lab) [address] [place], [address], 01/10/2025 16:04:53 01/11/2001/10/2025 CBC/C OMPLE TE BLD COUNT W/DIF F bands 2 % 0-3 Not Available [facility] (Lab) [address] [place], [address], 01/10/2025 16:04:53 01/11/2001/10/2025 CBC/C OMPLE TE BLD COUNT W/DIF F lymphocytes 68 % 16.0-4 7.0 high Not Available [facility] (Lab) [address] [place], [address], 01/10/2025 16:04:53 01/11/2001/10/2025 CBC/C OMPLE TE BLD COUNT W/DIF F monocytes 5 % 5.0-12 .0 Not Available [facility] (Lab) [address] [place], [address], 01/10/2025 16:04:53 01/11/2001/10/2025 CBC/C OMPLE TE BLD COUNT W/DIF F eosinophils 1 % 1.0-7. 0 Not Available [facility] (Lab) [address] [place], [address], 01/10/2025 16:04:53 01/11/20 25 01/10/2025 CBC/C OMPLE TE BLD COUNT W/DIF F neutrophils, absolute count 4.68 x10'3 /uL 1.5-8. 0 Not Available [facility] (Lab) [address] [place], [address], 01/10/2025 16:04:53 01/11/2001/10/2025 CBC/C OMPLE TE BLD COUNT W/DIF F nucleated red blood cells 0.0 % -0 Not Available [facility] (Lab) [address] [place], [address], 01/10/2025 16:04:53 01/11/2001/10/2025 CBC/C OMPLE TE BLD COUNT W/DIF F NRBC# 0.00 x10'3 /uL Not Available [facility] (Lab) [address] [place], [address], 01/10/2025 16:04:53 01/11/2001/10/2025 LIPID PANEL cholesterol 229 mg/dL 140-19 9 high NIH MARY NSUS RECOM MENDA TION FOR NAIN STERO L: ADULT CHILD LOW RISK: <200 <170 BORDE RLINE : <200- 239 ----- HIGH RISK: >240 >200 Not Available [facility] (Lab) [address] [place], [address], 01/10/2025 17:05:18 01/11/20 25 01/10/2025 LIPID PANEL triglyceride s 116 mg/dL 0-150 NIH MARY NSUS REPOR T RECOM MENDA TION FOR TRIGL YCERI EDMOND: ADULT CHILD LOW RISK: <150 ----- BODER LINE: 150-1 99 ----- HIGH RISK: >200 ----- Not Available [facility] (Lab) [address] [place], [address], 01/10/2025 17:05:18 01/11/20 25 01/10/2025 LIPID PANEL HDL cholesterol 65 mg/dL 40- Not Available [facility] (Lab) [address] [place], [address], 01/10/2025 17:05:18 01/11/2001/10/2025 LIPID PANEL LDL cholesterol, calculated 141 mg/dL 0-130 high NIH MARY NSUS REPOR T RECOM MENDA TIONS FOR LDL: ADULT CHILD LOW RISK <130 <110 (OPTI MAL LDL) <100 ----- BORDE RLINE : 130-1 59 ----- HIGH RISK: >160 >130 A TRIGL YCERI DE RESUL T >400 INVAL IDATE S THE CALCU LATIO N FOR LDL FRACT IONAT ION - THE LDL RESUL T WILL NOT BE REPOR TEMITOPE. Not Available [facility] (Lab) [address] [place], [address], 01/10/2025 17:05:18 01/11/2001/10/2025 COMPR EHENS KAVIN METAB OLIC PANEL sodium 138 mmol/ L 137-14 5 Not Available [facility] (Lab) [address] [place], [address], 01/10/2025 17:05:25 01/11/2001/10/2025 COMPR EHENS KAVIN METAB OLIC PANEL potassium 4.3 mmol/ L 3.5-5. 1 Not Available [facility] (Lab) [address] [place], [address], 01/10/2025 17:05:25 01/11/20 25 01/10/2025 COMPR EHENS KAVIN METAB OLIC PANEL chloride 103 mmol/ L 98-107 Not Available [facility] (Lab) [address] [place], [address], 01/10/2025 17:05:25 01/11/20 25 01/10/2025 COMPR EHENS KAVIN METAB OLIC PANEL carbon dioxide 29 mmol/ L 22-30 Not Available [facility] (Lab) [address] [place], [address], 01/10/2025 17:05:25 01/11/20 25 01/10/2025 COMPR EHENS KAVIN METAB OLIC PANEL anion gap 10.3 mmol/ L 14-22 low Not Available [facility] (Lab) [address] [place], [address], 01/10/2025 17:05:25 01/11/20 25 01/10/2025 COMPR EHENS KAVIN METAB OLIC PANEL glucose 93 mg/dL 70-99 Not Available [facility] (Lab) [address] [place], [address], 01/10/2025 17:05:25 01/11/20 25 01/10/2025 COMPR EHENS KAVIN METAB OLIC PANEL BUN 13 mg/dL 8-19 Not Available [facility] (Lab) [address] [place], [address], 01/10/2025 17:05:25 01/11/20 25 01/10/2025 COMPR EHENS KAVIN METAB OLIC PANEL creatinine 0.89 mg/dL 0.66-1 .25 Not Available [facility] (Lab) [address] [place], [address], 01/10/2025 17:05:25 01/11/20 25 01/10/2025 COMPR EHENS KAVIN METAB OLIC PANEL GFR 60 Refer ence Range : Jemison ge GFR Healt hy Adult : >60 mL/mi n/1.7 3 m2 Chron ic Kidne y Disea se: 15-60 mL/mi n/1.7 3 m2 Kidne y Failu re: <15/m L/min /1.73 m2 www.n iddk. nih.g ov The MDRD study equat ion has not been valid ated in child fito <18 years of age; pregn ant women ; the elder ly >85 years of age; or in some racia l or ethni c subgr oups, such as Hispa nics. Outsi de the valid ated geovanna eters , estim ated GFR is less accur ate, requi ring clini wilbert judgm ent on a case- by-ca se basis . Clini wilbert inter preta tion for other races and ages must be made by the clini jesus. The MDRD study equat ion has not been valid ated for the evalu ation of serum creat inine relat ed to nutri pro l statu s or medic ation usage . For perso ns <18 years of age, a pedia tric GFR calcu lator is avail able on the F websi te: https ://aaron w.denzel sherice.o rg/pr ofess ional s/kdo qi/gf r_cal culat or Not Available [facility] (Lab) [address] [place], [address], 01/10/2025 17:05:25 01/11/2001/10/2025 COMPR EHENS KAIVN METAB OLIC PANEL alkaline phosphatase 63 U/L 38-126 Not Available [facility] (Lab) [address] [place], [address], 01/10/2025 17:05:25 01/11/20 25 01/10/2025 COMPR EHENS KAVIN METAB OLIC PANEL alanine aminotransfe rase 16 U/L 0-35 Not Available [facility] (Lab) [address] [place], [address], 01/10/2025 17:05:25 01/11/20 25 01/10/2025 COMPR EHENS KAVIN METAB OLIC PANEL aspartate aminotransfe rase 34 U/L 15-37 Not Available [facility] (Lab) [address] [place], [address], 01/10/2025 17:05:25 01/11/20 25 01/10/2025 COMPR EHENS KAVIN METAB OLIC PANEL bilirubin, total 0.80 mg/dL 0.20-1 .30 Not Available [facility] (Lab) [address] [place], [address], 01/10/2025 17:05:25 01/11/20 25 01/10/2025 COMPR EHENS KAVIN METAB OLIC PANEL calcium 9.7 mg/dL 8.4-10 .2 Not Available [facility] (Lab) [address] [place], [address], 01/10/2025 17:05:25 01/11/20 25 01/10/2025 COMPR EHENS KAVIN METAB OLIC PANEL total protein 7.9 g/dL 6.3-8. 2 Not Available [facility] (Lab) [address] [place], [address], 01/10/2025 17:05:25 01/11/20 25 01/10/2025 COMPR EHENS KAVIN METAB OLIC PANEL albumin 4.5 g/dL 3.0-4. 4 high Not Available [facility] (Lab) [address] [place], [address], 01/10/2025 17:05:25 01/11/20 25 01/10/2025 COMPR EHENS KAVIN METAB OLIC PANEL globulin 3.4 g/dL 2.6-4. 2 Not Available [facility] (Lab) [address] [place], [address], 01/10/2025 17:05:25 01/11/20 25 01/10/2025 COMPR EHENS KAVIN METAB OLIC PANEL A/G ratio 1.3 ratio 1.0-2. 0 Not Available [facility] (Lab) [address] [place], [address], 01/10/2025 17:05:25 01/11/20 25 01/10/2025 C REACT KVAIN PROTE IN,UL TRA SENS C-reactive protein 0.05 mg/dL 0.0-0. 5 Not Available [facility] (Lab) [address] [place], [address], 01/10/2025 17:07:17 01/11/20 25 01/10/2025 T4 FREE free T4 1.90 NG/dL 0.78-2 .19 Not Available [facility] (Lab) [address] [place], [address], 01/10/2025 17:10:34 01/11/20 25 01/10/2025 VITAM IN D 25-HY DROXY [id number] 68.5 NG/mL 30-100 Vitam in D Statu s: Defic ient: <20 ng/mL Insuf ficie nt: 20-29 ng/mL Suffi cient : 30-10 0 ng/mL Not Available [facility] (Lab) [address] [place], [address], 01/10/2025 17:11:37 01/11/20 25 01/10/2025 TSH thyroid-stim ulating hormone 2.100 uIU/m L 0.465- 4.680 Not Available [facility] (Lab) [address] [place], [address], 01/10/2025 17:25:44 03/22/19 24 forea rm 2vws, left [facility] [address] [place] [address] [phone] Patien t Name: STACIE FORDE Access ion #: [id number] Sex: F : 1940 8 Dictat ed By: Amy Hood Attend ing Physic antonio: MARILOU BURK CE Orderi Physic antonio: MARILOU BURK CE Exam Date: 2023 14:41 PM Exam Name: XR FOREAR M LT 2V Admitt ing Diagno sis(es ): CLINIC AL INDICA TION: PAIN TECHNI QUE: 2 radiog raphic views of the left forear m were obtain ed. 4 radiog raphs of the left elbow were obtain ed. Compar timoteo: None FINDIN GS/ IMPRES GABRIEL: There is a elbow joint effusi on. Subtle possib ly nondis placed fractu re of the radial head is visual ized. Consid er repeat radiog raphs in 7-10 days. There is no radiop aque foreig n body. Electr onical ly Signed by: Amy Hood at 2023 16:02: 04 PM Page [address] (Imaging) [address] [place], [address], 03/22/2023 17:07:01 03/22/19 24 elbow 3 vws, left [facility] [address] [facility] [place] [address] Patien t Name: STACIE FORDE Access ion #: [id number] Sex: F : 1940 8 Dictat ed By: Amy Hood Attend ing Physic antonio: MARILOU BURK CE Orderi ng Physic antonio: MARILOU BURK CE Exam Date: 2023 14:41 PM Exam Name: XR ELBOW LT 3V Admitt ing Diagno sis(es ): CLINIC AL INDICA TION: PAIN TECHNI QUE: 2 radiog raphic views of the left forear m were obtain ed. 4 radiog raphs of the left elbow were obtain ed. Compar timoteo: None FINDIN GS/ IMPRES GABRIEL: There is a elbow joint effusi on. Subtle possib ly nondis placed fractu re of the radial head is visual ized. Consid er repeat radiog raphs in 7-10 days. There is no radiop aque foreig n body. Electr onical ly Signed by: Amy Hood at 2023 16:02: 04 PM Page [address] (Imaging) [address] [place], [address], 03/22/2023 17:07:02 Result Notes None recorded. Problems Name Problem SNOMED Code Status Onset Date Resolution Date Notes Provider Name and Address Organization Details Recorded Time Closed fracture of lateral malleolus 36649278 Active Not Available [facility] 3 15:54:53 Collagenou s colitis 10052510 Active 2020 Not Available [facility] 3 15:54:53 Hypothyroi dism 42951560 Active 2020 Not Available [facility] 3 15:54:53 Polyp of colon 39469512 Active 2020 Not Available [facility] 3 15:54:54 Fatigue 60234726 Active 2021 Not Available [facility] 3 15:54:54 Acute sinusitis 35296202 Active 2021 Not Available [facility] 3 15:54:53 Senile osteoporos is 19339740 Active 2021 Not Available [facility] 3 15:54:53 Acute urticaria 308097855 Active 2022 Not Available [facility] 3 15:54:53 Neuropathy 714217708 Active 2022 Jose Manuel Burk MD [address], [place], [address] , [employer] [facility] [employer] 3 11:54:36 COVID-19 443668769 Active 2022 Jose Manuel Burk MD [address], [address], [place], [address] , [employer] [facility] [employer] 3 10:03:38 Acute bronchitis 81195582 Active 2022 Jose Manuel Burk MD [address], [address], [place], [address] , [employer] [facility] [employer] 3 10:05:40 Injury of left upper arm 3314920135912 9100 Active 2023 Tonia Pearl CMA null, [place] [facility] 4 15:14:37 Elbow fracture 323644508 Active 2023 Jose Manuel Burk MD [address], [address], [place], [address] , [place] [facility] 4 16:34:32 Hyperchole sterolemia 53790947 Active 2023 Jose Manuel Burk MD [address], [address], [place], [address] , [place] [facility] 4 11:28:13 Crohn's disease 79500248 Active 2024 SHAHRIAR Cao, [place] [facility] 5 11:08:28 Vitamin D deficiency 99291742 Active 2024 Jose Manuel Burk MD [address] [address], [place], [address] , [facility] 5 11:15:15 Chronic lymphoid leukemia, disease 37441922 Active 2024 Tonia Pearl CMA null, [facility] [employer] [facility] 15:15:11 Problem Notes None recorded. Procedures Surgical History Date Name Laterality Status Provider Name and Address Organization Details Recorded Time 01/12/20 Medicare Wellness CPT Code, subsequent completed Tia Siddiqui RN [facility] [employer] [facility] 01/12/2024 10:59:59 01/23/20 21 Most Recent Bone Density completed Not Available [facility] 05/19/2022 15:54:10 03/08/20 17 Date of Last Colonoscopy completed Not Available [facility] 05/19/2022 15:54:10 Imaging Results None recorded. Procedure Notes None recorded. Medical Equipment None Reported. Medications Name Sig Start Date Stop Date Status Note LastModified by Organization Details LastModified Time prednisone 10 mg tablet 01/13 completed Not Available Not Available Not Available doxycycline hyclate 100 mg capsule 01/13 completed Not Available Not Available Not Available trazodone 50 mg tablet Take 1 tablet every day by oral route at bedtime. 07/16 completed Not Available Not Available Not Available benzonatate 200 mg capsule TAKE 1 CAPSULE BY MOUTH THREE TIMES DAILY 01/14 completed Not Available Not Available Not Available citalopram 10 mg tablet 01/13 completed Not Available Not Available Not Available Medrol (Pardeep) 4 mg tablets in a dose pack As directed 07/16 completed Not Available Not Available Not Available Zithromax Z-Pardeep 250 mg tablet TAKE 2 TABLETS (500 MG) BY ORAL ROUTE ONCE DAILY FOR 1 DAY THEN 1 TABLET (250 MG) BY ORAL ROUTE ONCE DAILY FOR 4 DAYS 07/16 completed Not Available Not Available Not Available acetaminoph en 300 mg-codeine 30 mg tablet 01/13 completed Not Available Not Available Not Available tramadol 50 mg tablet TAKE 1 TABLET BY MOUTH EVERY 6 HOURS 07/14 completed Not Available Not Available Not Available meloxicam 7.5 mg tablet TK 1 T PO BID 01/13 completed Not Available Not Available Not Available famotidine 20 mg tablet 07/16 completed Not Available Not Available Not Available trazodone 100 mg tablet Take 1 tablet every day by oral route at bedtime. 07/14 completed Not Available Not Available Not Available benzonatate 100 mg capsule 01/13 completed Not Available Not Available Not Available dexamethaso ne 2 mg tablet 01/13 completed Not Available Not Available Not Available levothyroxi ne 50 mcg tablet TAKE 1 TABLET BY MOUTH ONCE DAILY active Not Available Not Available No t Available triamcinolo ne acetonide 0.1 % topical ointment 07/16 completed Not Available Not Available Not Available budesonide DR - ER 3 mg capsule,del ayed,extend ed release TAKE 3 CAPSULES BY MOUTH ONCE DAILY 2024 active Not Available Not Available Not Avai lable albuterol sulfate HFA 90 mcg/actuati on aerosol inhaler INHALE 2 PUFFS BY MOUTH EVERY 6 HOURS active Not Available Not Available No t Available ramelteon 8 mg tablet 01/13 completed Not Available Not Available Not Available budesonide 3 MG THREE TABLET DAILY 07/16 completed Not Available Not Available Not Available PreviDent 5000 Booster Plus 1.1 % dental paste USE TO BRUSH TEETH THOROUGHL Y ONCE DAILY AT BEDTIME. SPIT AFTER USE. DO NOT RINSE active Not Available Not Available No t Available Paxlovid 150 mg-100 mg tablets in a dose pack (Moderate Renal Dose) TAKE ONE 150 MG AND ONE 100 MG TABLET TWICE DAILY BY MOUTH FOR 5 DAYS. 07/14 completed Not Available Not Available Not Available Vitals Date Recorded Body height Body mass index (BMI) Body weight Heart rate Body temperature Oxygen saturation Oxygen saturation in Arterial blood by Pulse oximetry Systolic And Diastolic Provider Name and Address Organization Details Last Updated DateTime 5 162.56 cm 18.5 kg/m2 14303.9 8 g 82 /min 97 [degF] 98 % 98 % 120/64 mm[Hg] Jelly Mae William [place] [employer] [facility] 5 11:36:55 Date Recorded Body height Body mass index (BMI) Body weight Heart rate Body temperature Oxygen saturation Oxygen saturation in Arterial blood by Pulse oximetry Systolic And Diastolic Provider Name and Address Organization Details Last Updated DateTime 4 162.56 cm 18.7 kg/m2 84206.5 7 g 70 /min 97 [degF] 96 % 96 % 122/68 mm[Hg] [facility] [facility] 4 11:14:06 Date Recorded Body height Body mass index (BMI) Body weight Heart rate Body temperature Oxygen saturation Oxygen saturation in Arterial blood by Pulse oximetry Systolic And Diastolic Provider Name and Address Organization Details Last Updated DateTime 5 162.56 cm 19 kg/m2 02933.9 6 g 83 /min 97.2 [degF] 97 % 97 % 112/60 mm[Hg] [facility] [place] [facility] 5 10:58:03 Date Recorded Body height Body mass index (BMI) Body weight Heart rate Body temperature Oxygen saturation Oxygen saturation in Arterial blood by Pulse oximetry Systolic And Diastolic Provider Name and Address Organization Details Last Updated DateTime 4 162.56 cm 18.7 kg/m2 65736.5 7 g 76 /min 97 [degF] 98 % 98 % 120/60 mm[Hg] [facility] [place] [facility] 4 10:59:17 Date Recorded Body height Body mass index (BMI) Body weight Heart rate Body temperature Oxygen saturation Oxygen saturation in Arterial blood by Pulse oximetry Systolic And Diastolic Provider Name and Address Organization Details Last Updated DateTime 3 162.56 cm 18.4 kg/m2 25206.3 8 g 82 /min 97 [degF] 96 % 96 % 120/64 mm[Hg] [facility] [place] [facility] 3 11:36:54 Social History Question Answer Notes LastModified by Organizat ion Details LastModified Time Tobacco Smoking Status Former Smoker DALJIT Main, [facility] [facility] 01/12/2024 11:00:38 Do You Have An Advance Directive? Yes [id number] Information not available 05/19/2022 Are You Blind Or Do You Have Difficulty Seeing? No [id number] Information not available 05/19/2022 Are You Deaf Or Do You Have Serious Difficulty Hearing? Yes Has Hearing Aids [email or web address] Information not available 01/12/2024 What Type Of Diet Are You Following? REGULAR MIGRATION.[id number] [id number] Information not available 05/19/2022 Have There Been Any Changes To Your Family Or Social Situation? No [email or web address] Information not available 01/12/2024 What Is The Fluoride Status Of Your Home? Unknown [id number] Information not available 05/19/2022 Do You Use Insect Repellent Routinely? No [id number].[id number] Information not available 05/19/2022 [facility] MIGRATION.[id number] Information not available 05/19/2022 Are You Able To Care For Yourself? Yes Information not available 01/12/2024 Are You Blind Or Do Yo Have Difficulty Seeing? No [email or web address] Information not available 01/12/2024 Are You Deaf Or Do You Have Serious Difficulty Hearing? Yes [email or web address] Information not available 01/12/2024 Live Alone Of With Others? Alone Information not available 01/12/2024 Do You Have A Medical Power Of Parts Salesman? Yes [id number] Information not available 05/19/2022 What Was The Date Of Your Most Recent Tobacco Screening? 01/12/2024 [email or web address] Information not available 01/12/2024 Do You Have Any Pets? No MIGRATION.[id number] Information not available 05/19/2022 What Is Your Relationship Status? MIGRATION.[id number] Information not available 05/19/2022 Do You Use Your Seat Belt Or Car Seat Routinely? Yes [email or web address] Information not available 01/12/2024 Do You Have Smoke And Carbon Monoxide Detectors In Your Home? Yes [id number].[id number] Information not available 05/19/2022 Are You Passively Exposed To Smoke? No MIGRATION.95080 05093 Information not available 05/19/2022 Are There Any Smokers In Your House? No MIGRATION.44489 [id number] Information not available 05/19/2022 Do You Use Sunscreen Routinely? No MIGRATION.[id number] [id number] Information not available 05/19/2022 Have You Recently Traveled Abroad? No MIGRATION.[id number] [id number] Information not available 05/19/2022 Do You Have Difficulty Walking Or Climbing Stairs? No MIGRATION.69033 [id number] Information not available 05/19/2022 Do You Have Any Dietary Restrictions? No MIGRATION.17303 [id number] Information not available 05/19/2022 Sex: Unknown Functional Status Question Answer Note LastModified by Organizat ion Details LastModified Time What is your level of alcohol consumption? None [id number] Information not available 05/19/2022 Do you have transportation difficulties? No [id number] 026 Information not available 05/19/2022 Are you able to walk independently without assistance or assistive devices? YESWOREST MIGRATION.[id number] 026 Information not available 05/19/2022 Do you have difficulty doing errands alone? No [id number].[id number] 026 Information not available 05/19/2022 Are you able to care for yourself independently? Yes [id number] 026 Information not available 05/19/2022 Do you have difficulty dressing, bathing, grooming, or toileting? No [id number].[id number] 026 Information not available 05/19/2022 What is your exercise level? None [id number].[id number] 026 Information not available 05/19/2022 Mental Status Question Answer Note LastModified by Organizat ion Details LastModified Time Do you have difficulty concentrating, remembering or making decisions? No [id number] Information not available 05/19/2022 Family History Nothing Reported Notes:Mother at 73 from colon cancer and diabetes Father at 88 from coronary artery disease One brother living diabetes One sister combination of diabetes as well as colon cancer. Medical History Condition Response NERVE DISEASE N BLINDNESS N RHEUMATIC FEVER N KIDNEY STONES N BLADDER PROBLEMS N MRSA N OTHER # 1 N POLIO N LUNG DISEASE/DISORDER N HISTORY OF DRUG ABUSE N RADIATION / CHEMOTHERAPY N COPD N Other # 2 N BLOOD DISEASES N EAR OR HEARING PROBLEMS N MUMPS N SHINGLES N BOWEL PROBLEMS N DEPRESSION (INCLUDING POST ) N STROKE/TIA N ULCERS N BENIGN PROSTATIC HYPERPLASIA N MEASLES N HYPOTENSION N MYOCARDIAL INFARCTION N OBESITY N GERD/NAUSEA N ANEURYSM N URINARY/BLADDER/KIDNEY PROBLEMS N CORONARY ARTERY DISEASE (CAD) N ADDICTION CONCERNS N ENDOMETRIOSIS N Impotence N USE OF BLOOD THINNERS N SKIN PROBLEMS N GASTROINTESTINAL DISORDER N PERIPHERAL VASCULAR DISEASE N MUSCLE,JOINT OR BONE PROBLEMS N GASTROINTESTINAL BLEEDING N BLOOD CLOTS N ASTHMA N CATARACTS N ERECTILE DYSFUNCTION N VARICOSITIES N GI PROBLEMS N Low Testosterone N INFERTILITY N AIDS/HIV N CHEMOTHERAPY / RADIATION N LIVER DISEASE N MALE HYPOGONADISM N HYPERTENSION N Deficiency N TOURETTE'S N ANXIETY DISORDER N BLOOD TRANSFUSION N ANEMIA/BLOOD DISORDER N CHRONIC EAR INFECTIONS N BRONCHITIS N TUBERCULOSIS N GLAUCOMA N FOOT PROBLEM N DIVERTICULITIS N CHICKENPOX N SLEEP APNEA N INFECTIOUS DISEASE N HEART ARRHYTHMIA N PROSTATE N INSOMNIA N HIGH CHOLESTEROL / HYPERLIPIDEMIA N HYPERTHYROIDISM N EYE PROBLEMS N EDEMA N CHRONIC PAIN SYNDROME N HYPOTHYROIDISM Y CAROTID BLOCKAGE N CONSTIPATION N BACK / NECK PROBLEMS N HAVE YOU BEEN HOSPITALIZED OR SEEN IN [facility] IN THE PAST YEAR ? N ATHEROSCLEROSIS N BREAST PROBLEMS N DIALYSIS N ECZEMA N OSTEOPOROSIS N ARTHRITIS N NO SIGNIFICANT PAST MEDICAL HISTORY N APPENDICITIS N DIABETES, TYPE N BAD TEETH N ENT N HEARTBURN / REFLUX N AUTISM SPECTRUM DISORDER (ASD) N HEPATITIS / LIVER DISEASE N GOUT N SLEEP DISORDER N ALZHEIMER'S DISEASE N Brain Problems N HERPES N DEMENTIA N HEADACHES/MIGRAINES N SEIZURES/EPILEPSY N VASCULAR DISEASE N PACEMAKER N Blood Disorder N DIZZINESS N HEART DISEASE/HEART PROBLEMS N KIDNEY DISEASE N MULTIPLE SCLEROSIS N CARDIAC ARRHYTHMIA N CANCER: SPECIFY N ATRIAL FIBRILLATION N Gall Stones N PULMONARY EMBOLISM N AUTOIMMUNE DISEASE N Gynecological History Statement/Question Response Date of Last Mammogram 01/22/2021 Date of Last Colonoscopy 03/08/2017 Most Recent Bone Density 01/22/2021 Obstetrics History GPAL:G 0 P 0 0 0 0 Immunizations Vaccine Type Date Status Note Provider Nam e and Address Organization Details Recorded Time Influenza, adjuvanted, trivalent, PF 4 completed MELIA Perez [facility] 01/19/2024 17:09:00 COVID-19, mRNA, LNP-S, PF, donnie-sucrose, 30 mcg/0.3 mL 4 completed MELIA Perez [facility] 01/19/2024 17:10:32 zoster recombinant 8 completed Not Available [facility] 01/10/2025 10:57:59 zoster recombinant 8 completed Not Available [facility] 01/10/2025 10:57:59 Influenza, high-dose, trivalent, PF 8 completed Not Available [facility] 01/10/2025 10:57:59 Influenza, high-dose, trivalent, PF 9 completed Not Available [facility] 01/10/2025 10:57:59 Influenza, adjuvanted, quadrivalent, PF 0 completed Not Available [facility] 01/10/2025 10:57:59 Influenza, adjuvanted, quadrivalent, PF 1 completed Not Available [facility] 01/10/2025 10:57:59 COVID-19, mRNA, LNP-S, PF, 30 mcg/0.3 mL dose 1 completed Not Available [facility] 01/10/2025 10:57:59 COVID-19, mRNA, LNP-S, PF, donnie-sucrose, 30 mcg/0.3 mL 5 completed Not Available [facility] 01/10/2025 10:57:59 Influenza, adjuvanted, trivalent, PF 5 completed Not Available [facility] 01/10/2025 10:57:59 Influenza, high-dose, quadrivalent, PF 3 completed Jelly landers [facility] [place] [facility] 01/14/2023 17:14:35 pneumococcal polysaccharide PPV23 3 completed Jelly landers [facility] [facility] 07/22/2022 12:26:50 Influenza, split virus, quadrivalent, preservative 1 completed Not Available [facility] 05/19/2022 15:56:02 SARS-COV-2 (COVID-19) vaccine, UNSPECIFIED 1 completed Not Available [facility] 05/19/2022 15:56:02 SARS-COV-2 (COVID-19) vaccine, UNSPECIFIED 1 completed Not Available [facility] 05/19/2022 15:56:02 Pneumococcal conjugate PCV 13 1 completed Not Available [facility] 05/19/2022 15:56:03 Influenza, high-dose, quadrivalent, PF 2 completed Not Available [facility] 05/19/2022 15:56:04 Past Encounters Encounter ID Performer Location Encounter Start Date Encounter Closed Date Diagnosis/Indication Diagnosis SNOMED-CT Code Diagnosis ICD10 Code Diagnosis IMO Codes Diagnosis Note [id number] Jose Manuel Burk MD [facility] Internal [facility] [place] [address] [place] [address] [place] [address] 01/13/2021 00:00:00 01/13/2021 14:58:37 [id number] Jose Manuel Burk MD [facility] Internal [facility] [place] [address] [place] [address] [place] [address] 07/17/2021 00:00:00 07/17/2021 11:42:24 [id number] Jose Manuel Burk MD [facility] Internal Med [place] [address] [place] [address] y , [place] [address] 01/15/2022 00:00:00 01/15/2022 12:04:51 [id number] Jose Manuel Burk MD [facility] Internal Med [place] [address] [place] [address] [place] [address] 07/16/2022 11:20:54 07/16/2022 12:05:08 Collagenous colitis 79020587 K52.831 Hypothyroidism 59194654 E03.9 Neuropathy 462020274 G62 .9 [id number] Jose Manuel Burk MD [facility] Internal Med [place] [address] [place] [address] [place] [address] 01/14/2023 11:33:03 01/14/2023 11:55:50 Collagenous colitis 32665403 K52.831 Hypothyroidism 66736750 E03.9 Neuropathy 718584929 G62 .9 [id number] Jose Manuel Burk MD [facility] Internal [facility] [place] [address] [place] [address] [place] [address] 07/15/2023 11:02:20 07/15/2023 11:38:26 Hypothyroidism 06457230 E03.9 Hypercholesterolemia 136 92851 E78.00 Collagenous colitis 1931 1003 K52.220 [id number] Jose Manuel Burk MD [facility] Internal Med [place] [address] [facility] , [place] [address] 01/12/2024 10:58:31 01/12/2024 11:23:53 Adult health examination 336582880 Z00.00 Screening for disorder 102107184 Z13.9 Hypercholesterolemia 136 04376 E78.00 Hypothyroidism 42985319 E03.9 Collagenous colitis 1931 1003 K52.689 [id number] Jose Manuel Burk MD [facility] [address] [facility] [address] [place] [address] 07/12/2024 10:55:08 07/12/2024 12:01:40 Collagenous colitis 28243730 K52.831 Hypercholesterolemia 136 49534 E78.00 Hypothyroidism 18771757 E03.9 Vitamin D deficiency 347 20273 E55.9 [id number] Jose Manuel Burk MD [facility] Med [facility] [address] [facility] [address] [place] [address] 01/10/2025 10:57:24 01/11/2025 12:07:01 Hypercholesterolemia 29038947 E78.00 Hypothyroidism 75198385 E03.9 Collagenous colitis 1931 1003 K52.831 Vitamin D deficiency 347 52521 E55.9 [id number] Health Concerns Section Related Observation LastModified by Organization Detai ls LastModified Time None Recorded Concern Status LastModified by Organization Details LastModified Time None Recorded Advance Directives Directive Y: Payers Insurance Date Sequence Insurance Name Policy Number Policy Joyce Covered Member ID Joyce Member ID Guarantor Name 01/10/2025 1 [employer] (MEDICARE REPLACEMENT/A DVANTAGE - PPO) [id number] 1 Stacie Forde [id number] Stacie Forde 01/12/2024 1 [facility] - MEDICARE SOLUTIONS (MEDICARE REPLACEMENT PPO) [id number] Stacie M Forde [id number] Stacie Forde Notes Date Note Type Note Provider Name and Address Organization Details Recorded Time 01/14/2023 text/html Patient Name: Stacie Quintanillaate Of Service: Tuesday ( 01.14.2023 ): 1940 Age: 82 There has been approximately a 6 lb weight loss since 01/15/2022. This represents approximately a 5.3% change in weight. Weight change attributable to lifestyle changes. Vital Signs:Blood Pressure: Sitting Rt. Arm 120/64Pulse: Sitting 82 /min and RegularRespiratory Rate: 12Height 64 in or 1.6 mWeight 107 lb or 48.5 kgBMI 18.4Temperature: 97 F or 36.1 CPulse Oximetry: 96 % at rest on no oxygen Chief Complaint: Addressed in HPI Problems or conditions discussed in the HPI were the only ones reviewed during the encounter.Only social and family history addressed in the HPI were reviewed during this encounter. Attendant(s): NoneConstitutional and Systemic Symptoms:none Medication Reconciliation: from medication list. 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 History of Present Illness #1. Collagenous colitis currently clinically take stable. Takes a a form of steroid. Well. No interval complaints any exacerbation.: #2. Hx of hypothyroidism currently stable. Heat intolerance: no Fatigue: no Weight gain: no Difficulty concentrating: no Muscle Symptoms: none Skin Texture: normal Skin Color: normal Currently taking synthroid. #3. 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 Based on a nerve conduction study. No interval complaints of any increasing numbness, tingling, weakness or ataxia. ADL: no limitations Number(s) of falls: none since last examination. Using support device: None but have recommended the use of a possible walker or least a cane for some support Medication: none.Medication List Reviewed and Reconciled 01/14/2023Levothyroxine 0.050 MG (TABLET - ORAL) Take One Tablet DailyBudesonide 3 MG (CAPSULE, DELAYED RELEASE - ORAL) Three Tablets DailyTrazodone 100 MG TABLET One HsADRs List Reviewed 01/14/2023Latex RashVaccination and Leeymtqrewqo8247-03 Alndaqfac8714-91 Nwmviqdtx3844-42 Prevnar 13 Yc0093-22 Covid PfizerSurgical HistoryLaser Eye Surgery Cleansing of Lens, Bilateral Cataracts, Lap Cholecystectomy, BUD BSOPreventative Testing Confirmed by Our Mqulhwl8507/16/2022 ALBUMIN 4.5 G/DL H103/24/2020 MAMMOGRAM DEXA SCAN03/08/2017 COLONOSCOPY (5 YEARS) 03/08/2022ocial HistoryFormer smoker smoked up to 1/2 pack a cigarettes a day for approximately 40 years. Not had cigarettes for a number of years.Worked as an RN for number of years.Does not drink or use any other illicit substances.Family HistoryMother at 73 from colon cancer and diabetesFather at 88 from coronary artery diseaseOne brother living diabetesOne sister combination of diabetes as well as colon cancer. Jose Manuel Burk MD [address] [facility], [facility] [address], [place], [address], [place] - [facility] [employer] 01/14/2023 11:57:43 07/15/2023 text/html Patient Name: Stacie Campos Of Service: Tuesday ( 07.15.2023 ): 1940 Age: 82 There has been approximately a 2 lb weight gain since 01/14/2023. This represents approximately a 1.9% change in weight. Weight change attributable to lifestyle changes. Vital Signs:Blood Pressure: Sitting Rt. Arm 122/68Pulse: Sitting 70 /min and RegularRespiratory Rate: 12Height 64 in or 1.6 mWeight 109 lb or 49.4 kgBMI 18.7Temperature: 97 F or 36.1 CPulse Oximetry: 96 % at rest on no oxygen Chief Complaint: Addressed in HPI Problems or conditions discussed in the HPI were the only ones reviewed during the encounter.Only social and family history addressed in the HPI were reviewed during this encounter. Attendant(s): NoneConstitutional and Systemic Symptoms:none Medication Reconciliation: from medication list. 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 History of Present Illness #1. Hx of hypothyroidism currently stable. Heat intolerance: no Fatigue: no Weight gain: no Difficulty concentrating: no Muscle Symptoms: none Skin Texture: normal Skin Color: normal Currently taking synthroid. #2. Type II Hypercholesterolaemia: Currently taking medication and tolerating well. No interval complaints of any muscle pain or arthralgia. No significant liver changes with medications. Last lipid panel: suboptimal by ATP III guidelines. Therapy reviewed regarding treatment of cholesterol management and include diet. #3. History of collagenous colitis clinically stable. Does take a steroid medication for this. Is currently stable with regards to this. There has been no change in bowel habits. No blood or any other stool problems. No extra colonic manifestations of any problems with the exception of some degenerative joint disease: Active Medication ListLevothyroxine 0.050 MG (TABLET - ORAL) Take One Tablet DailyBudesonide 3 MG (CAPSULE, DELAYED RELEASE - ORAL) Three Tablets Daily Adverse Drug Reactions ReviewedLatex Rash Vaccination and Bvhdmjhxirap4691-48 Isscbfwqx4326-05 Icogaiedo5024-89 Prevnar 13 Rf5701-94 Covid [employer] [facility] Ilwpkbm2548-47 Laser Eye Surgery Cleansing of Dnfq6332-14 Bilateral Uoaytrnti7243-13 Lap Ygvpfjrqwlqzlry4516-70 BUD BSO Preventative Qohfmrb9801/14/2023 ALBUMIN 4.6 G/DL H103/24/2020 MAMMOGRAM DEXA SCAN03/08/2017 COLONOSCOPY (5 YEARS) 03/08/2022 Social HistoryFormer smoker smoked up to 1/2 pack a cigarettes a day for approximately 40 years. 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 Family HistoryMother at 73 from colon cancer and diabetesFather at 88 from coronary artery diseaseOne brother living diabetesOne sister combination of diabetes as well as colon cancer. Jose Manuel Burk MD [address] [place] [address], [facility] [address], [place], [address], [facility] [employer] 07/15/2023 11:33:23 01/12/2024 text/html Patient Name: Stacie PonceDate Of Service: December ( 01.12.2024 ): 1940 Age: 83 Vital Signs:Blood Pressure: Sitting Rt. Arm 120/60Pulse: Sitting 76 /min and RegularRespiratory Rate: 16Height 64 in or 1.6 mWeight 109 lb or 49.4 kgBMI 18.7Pulse Oximetry: 98 % at rest on no oxygen Chief Complaint: Addressed in HPI Problems or conditions discussed in the HPI were the only ones reviewed during the encounter.Only social and family history addressed in the HPI were reviewed during this encounter. A significant, separate E/M service was performed to evaluate the current and new problems. Attendant(s): NoneConstitutional and Systemic Symptoms:none Medication Reconciliation: from medication list. 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 History of Present Illness Reviewed the findings of the preventative health visit. Addressed all areas with the patient, patient's family or caregivers. Preventative examinations and testing immunizations - vaccinations, colonic neoplasm screening and mammograms all reviewed and ordered where patient was amenable to the recommendations. Cognitive function was normal. Depression addressed and where necessary medications were adjusted or instituted. End of life and living will briefly discussed with patient and where these can be filled out and legally executed. Other blood and imaging studies were ordered if considered necessary. Other recommendations may be found in the encounter note. #1. Hx of hypothyroidism currently stable. Heat intolerance: no Fatigue: no Weight gain: no Difficulty concentrating: no Muscle Symptoms: none Skin Texture: normal Skin Color: normal Currently taking synthroid. #2. History of hypercholesterolaemia: History of the high cholesterol. Not taking any medications and being controlled by diet. No interval complaints of any chest pain, shortness of breath, orthopnea or other cardiovascular complaints. Last lipid panel: suboptimal by ATP III guidelines #3. History of collagenous colitis currently taking budesonide doing well. No interval complaints of any new problems. No change in bowel habits. No hematochezia or other change in caliber of stool etc..: Active Medication ListLevothyroxine 0.050 MG (TABLET - ORAL) Take One Tablet DailyBudesonide 3 MG (CAPSULE, DELAYED RELEASE - ORAL) Three Tablets Daily Adverse Drug Reactions ReviewedLatex Rash Vaccination and Immunization( ) 2022-06 PNEUMOVAX( ) 2023-12 INFLUENZA( ) 2021-01 PREVNAR 13 GC( ) 2020-04 COVID PFIZER( ) 2023-12 COVID BOOSTER PFIZER Surgical Ahpevji1668-81 Laser Eye Surgery Cleansing of Lbfr7588-71 Bilateral Ohdchsxdj8545-87 Lap Xqckrvuhzoiyjfo1797-53 BUD BSO Preventative Testing( ) 07/15/2023 Albumin 4.7 G/DL H( ) 01/22/2021 Mammogram 01/22/2023( ) 01/22/2021 DEXA Scan 01/22/2023( ) 03/08/2017 Colonoscopy (5 Years) 03/08/2022 Social HistoryFormer smoker smoked up to 1/2 pack a cigarettes a day for approximately 40 years. 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 Family HistoryMother at 73 from colon cancer and diabetesFather at 88 from coronary artery diseaseOne brother living diabetesOne sister combination of diabetes as well as colon cancer. Jose Manuel Burk MD [address] [facility], [facility] [address], [place], [address], [facility] [employer] 01/12/2024 11:22:15 07/12/2024 text/html Patient Name: Stacie Quintanillaate Of Service: June ( 07.12.2024 ): 1940 Age: 83 Vital Signs:Blood Pressure: Sitting Rt. Arm 120/64Pulse: Sitting 82 /min and RegularRespiratory Rate: 16Height 64 in or 1.6 mWeight 108 lb or 49.0 kgBMI 18.5Temperature: 97 F or 36.1 CPulse Oximetry: 98 % at rest on no oxygen Chief Complaint: Addressed in HPI Problems or conditions discussed in the HPI were the only ones reviewed during the encounter.Only social and family history addressed in the HPI were reviewed during this encounter. Attendant(s): NoneConstitutional and Systemic Symptoms:none Medication Reconciliation: from medication list. 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 History of Present Illness #1. History of collagenous colitis clinically stable. No change in quantity, frequency or consistency of any stool. Is doing well on the budesonide.: #2. History of hypercholesterolaemia: History of the high cholesterol. Not taking any medications and being controlled by diet. No interval complaints of any chest pain, shortness of breath, orthopnea or other cardiovascular complaints. Last lipid panel: suboptimal by ATP III guidelines #3. Hx of hypothyroidism currently stable. Heat intolerance: no Fatigue: no Weight gain: no Difficulty concentrating: no Muscle Symptoms: none Skin Texture: dry Skin Color: unchanged Currently taking synthroid. Active Medication ListLevothyroxine 0.050 MG (TABLET - ORAL) Take One Tablet DailyBudesonide 3 MG (CAPSULE, DELAYED RELEASE - ORAL) Three Tablets Daily Adverse Drug Reactions ReviewedLatex Rash Vaccination and Immunization( ) 2020-04 COVID PFIZER( ) 2023-12 INFLUENZA( ) 2021-01 PREVNAR 13 GC( ) 2022-06 PNEUMOVAX( ) 2023-12 COVID BOOSTER PFIZER Surgical [id number] Laser Eye Surgery Cleansing of [id number] Bilateral Jtpwkrovu6987-27 Lap Pceeylvbhhqljsk4508-90 BUD BSO Preventative Testing( ) 07/15/2023 Albumin 4.7 G/DL H( ) 01/22/2021 Mammogram( ) 01/22/2021 DEXA Scan 01/22/2023( ) 03/08/2017 Colonoscopy (5 Years) 03/08/2022 Social HistoryFormer smoker smoked up to 1/2 pack a cigarettes a day for approximately 40 years. 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 Family HistoryMother at 73 from colon cancer and diabetesFather at 88 from coronary artery diseaseOne brother living diabetesOne sister combination of diabetes as well as colon cancer. TEST RESULT RANGE UNITSCBC/COMPLETE BLD COUNT W/DIFF Date: 07/15/2023WHITE BLOOD CELLS 7.6 4.2-10.8 X10'3/ULHEMOGLOBIN 13.7 12.0-15.6 G/DLHEMATOCRIT 41.9 35.7-45.7 %PLATELETS 189 150-400 X10'3/ULCOMPREHENSIVE METABOLIC PANEL Date: 07/15/2023SODIUM 140 137-145 MMOL/LPOTASSIUM 4.5 3.5-5.1 MMOL/LBUN 17 8-19 MG/DLCREATININE 0.90 0.66-1.25 MG/DLGFR 60ALKALINE PHOSPHATASE 74 38-126 U/LALANINE AMINOTRANSFERASE 15 0-35 U/LASPARTATE AMINOTRANSFERASE 29 15-37 U/LBILIRUBIN, TOTAL 1.20 0.20-1.30 MG/DLCALCIUM 9.6 8.4-10.2 MG/DLLIPID PANEL Date: 4CHOLESTEROL 242 140-199 MG/DLTRIGLYCERIDES 164 0-150 MG/DLHDL CHOLESTEROL 63 40- MG/DLLDL CHOLESTEROL, CALCULATED 146 0-130 MG/DLT4 FREE Date: 07/15/2023FREE T4 1.43 0.78-2.19 NG/DLTSH Date: 07/15/2023THYROID-STIMU LATING HORMONE 1.270 0.465-4.680 UIU/ML Jose Manuel Burk MD [address] [facility], [address], [place], [address], [facility] [employer] [place] 07/12/2024 11:52:51 01/10/2025 text/html Patient Name: Stacie Campos Of Service: December ( 01.10.2025 ): 1940 Age: 84 There has been approximately a 2.5 lb weight gain since 07/12/2024. This represents approximately a 2.3% change in weight. Weight change attributable to lifestyle changes. Vital Signs:Blood Pressure: Sitting Rt. Arm 112/60Pulse: Sitting 83 /min and RegularRespiratory Rate: 16Height 64 in or 1.6 mWeight 110.5 lb or 50.1 kgBMI 19.0Temperature: 97.2 F or 36.2 CPulse Oximetry: 97 % at rest on no oxygen Chief Complaint: Addressed in HPI Problems or conditions discussed in the HPI were the only ones reviewed during the encounter.Only social and family history addressed in the HPI were reviewed during this encounter. Attendants(s) + NoneConstitutional and Systemic Symptoms:generalized fatigue Medication Reconciliation: from medication list. History of Present Illness #1. History of hypercholesterolaemia: History of the high cholesterol. Not taking any medications and being controlled by diet. No interval complaints of any chest pain, shortness of breath, orthopnea or other cardiovascular complaints. Last lipid panel: suboptimal by ATP III guidelines #2. Hx of hypothyroidism currently stable. Heat intolerance: no Fatigue: yes Weight gain: no Difficulty concentrating: no Muscle Symptoms: none Skin Texture: normal Skin Color: normal Currently taking synthroid. #3. History of collagenous colitis clinically stable. No interval complaints of any problems with increased bowel movements, hematochezia or any other associated gastrointestinal symptomatology. He is on no specific medication.: _ End Of Wellness Section Active Medication ListLevothyroxine 0.050 MG (TABLET - ORAL) Take One Tablet DailyBudesonide 3 MG (CAPSULE, DELAYED RELEASE - ORAL) Three Tablets Daily Adverse Drug Reactions ReviewedLatex Rash Vaccination and Immunization( ) 2020-04 COVID PFIZER(X) 2023-12 INFLUENZA( ) 2021-01 PCV13( ) 2022-06 PNEUMOVAX(X) 2023-12 COVID BOOSTER PFIZER(X) RSV Recommended(X) Shingrix Recommended(X) Tetanus or TD RecommendedImmunization s and Vaccinations Discussed and Implemented if feasible In the Office. Else referred to pharmacies. Surgical Nvwlqwv5844-51 Laser Eye Surgery Cleansing of Qdqx4661-30 Bilateral Bgobplmpd7944-04 Lap Ooweshgulqhcayk6132-67 BUD BSO Preventative Testing: (X) Due (?) Optional( ) 07/15/2023 Albumin 4.7 G/DL H( ) 01/22/2021 Mammogram(?) 01/22/2021 DEXA Scan 01/22/2023(?) 03/08/2017 Colonoscopy (5 Years) 03/08/2022reventative Testing Discussed with Patient and Attendants Social HistoryFormer smoker smoked up to 1/2 pack a cigarettes a day for approximately 40 years. 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 Family HistoryMother at 73 from colon cancer and diabetesFather at 88 from coronary artery diseaseOne brother living diabetesOne sister combination of diabetes as well as colon cancer. Jose Manuel Burk MD [address], [address], [place], [address], [place] - [employer] 01/10/2025 11:16:08 OBGyn Episode No OBEpisode recorded.
--- OUTSIDE RECORDS SUMMARY | 2025-01-15 17:20 | XMS_ITS | Clinical Summary ---
Author Organization [facility] Address [facility] [place] [address] Care Team Providers Care General Education Instructor Name Role Phone Socorro Thorpe MD Primary Care Provider [phone] Allergies No known active allergies Medications azelastine 0.1 % nasal spray 07/22/2017 Activ e budesonide 3 MG 24 hr capsule 06/07/2017 Activ e fluticasone propionate 50 MCG/ACT nasal spray 07/22/2017 Active meloxicam 15 MG tablet 07/12/2017 Active Naproxen Sodium (ALEVE) 220 MG Cap Active polyethylene glycol packet Take 17 g by mouth daily. Dissolve powder in 240 mL water Active levothyroxine 50 MCG tablet Take 50 mcg by mouth every morning. Active Active Problems Problem Noted Date Diagnosed Date Sacroiliitis 08/02/2017 Encounters Date Type Department Care Team Description 01/10/2025 7:14 AM CDT - 01/10/2025 11:59 PM T Hospital Encounter [facility] [place] [address] Feliciano Burk MD Discharge Disposition: Home or Self Care (Routine Discharge) from Last 3 Months Family History Medical History Relation Comments Back problems Brother Relation Status Comments Brother Father Mother Social History Tobacco Use Types Packs/Day Years Used Date Smoking Tobacco: Every Day Cigarettes Smokeless Tobacco: Never Tobacco Cessation:Ready to Q uit: No; Counseling Given: No Alcohol Use Standard Drinks/Week Comments No 0 (1 standard drink = 0.6 oz pur e alcohol) Comments No Sex and Gender Information Value Date Recorded Sex Assigned at Not on file Legal Sex Female 7:42 PM CDT Gender Identity Not on file Sexual Orientation Not on file Last Filed Vital Signs Vital Sign Reading Time Taken Comments Blood Pressure 132/63 08/10/2017 10:30 AM CDT Pulse 59 08/10/2017 10:30 AM CDT Temperature 36.8 C (98.2 F) 08/10/2017 9:31 AM CDT Respiratory Rate 18 08/10/2017 10:30 AM CDT Oxygen Saturation 100% 08/10/2017 10:30 AM CDT Inhaled Oxygen Concentration - - Weight 51.3 kg (113 lb) 08/10/2017 9:31 AM CDT Height 162.6 cm (5' 4) 08/10/2017 9:31 AM CDT Body Mass Index 19.4 08/10/2017 9:31 AM CDT Plan of Treatment Health Maintenance Due Date Last Done Comments DTaP, Tdap and Td Vaccines ( 1 - Tdap) 08/16/1959 Pneumococcal Vaccine: 50+ Ye ars (1 of 2 - PCV) 08/16/1959 Zoster Vaccines (1 of 2) 1990 Annual Medicare Wellness Visit 2005 Dexa Scan (General) 2005 RSV Immunization or 60+ Years (1 - 1-dose 75+ series) 08/16/2015 COVID-19 Vaccine ( - 2024-2 6 season) 2024 Influenza Adult (#1) 2024 Hepatitis A Vaccines Aged Out No long er eligible based on patient's age to complete this topic Meningococcal B Vaccine Aged Out No l onger eligible based on patient's age to complete this topic Meningococcal Vaccine Aged Out No helga fabiana eligible based on patient's age to complete this topic RSV Immunizations Under 20 Months Aged Out No longer eligible based on patient's age to complete this topic Procedures Procedure Name Priority Date/Time Associated Diagnosis Comments PATHOLOGY Routine 01/10/2025 12:00 AM CDT from Last 3 Months Results * Pathology (01/10/2025 12:00 AM CDT) PATHOLOGY [facility] Department of Laboratory Medicine [address] [place] [id number] , extension [phone] Pathology Report Peripheral Smear Report Name: STACIE FORDE Specimen #: [id number] Age: 5 1940 (Age: 84) Location: [facility] Sex: F Procedure Date: 01/10/2025 Hospital #: [id number] Date Received: 01/11/2025 Date Reported: 01/11/2025 Provider: FELICIANO BURK MD Source: Peripheral blood Clinical History: Leukocytosis FINAL DIAGNOSIS: Peripheral blood, smear review: - Lymphocytosis, see comment. Diagnosis Comment: Noted in the peripheral blood smear is a mild lymphocytosis comprised of small mature lymphocytes. Although this could be reactive, the possibility of a low-grade lymphoproliferative disorder (such as monoclonal B-cell lymphocytosis or chronic lymphocytic leukemia) cannot be excluded. Correlation with flow cytometric analysis could be considered on a fresh specimen, if clinically indicated. Electronically Signed Out Raudel Gillette M.D. INTERPRETATION: Peripheral Blood Comments: Red Blood Cells: The hemoglobin is within normal range. The red blood cells are generally normocytic and normochromic without significant anisopoikilocytosis. White Blood Cells: The white blood cell count is elevated to 17.2 x 10^3/uL. There is a lymphocytosis comprised of small mature lymphocytes. Manual Differential: Lymphocytes 76%, neutrophils 22%, monocytes 2% Platelets: The platelet count is within normal range with no significant morphologic abnormalities. Interpretation and sign out were performed at [facility], [address] [place] [address]. [facility] 01/10/2025 01/11/2025 9:0 4 AM CDT Comment:Peripheral blood us Feliciano Burk MD PATHOLOGY/CYTOLOGY ORDERABLES Final Result [facility] [address] [place] [address], [id number] from Last 3 Months Insurance MED [facility] MEDICARE Care Teams General Education Instructor Relationship Specialty Start Date End Date Socorro Thorpe MD [address] [facility] [address] [place] [address] PCP - General FAMILY PRACTICE 08/02/17
--- OUTSIDE RECORDS SUMMARY | 2025-01-15 17:20 | XMS_ITS | Data Portability ---
Author Organization [facility], [employer] Address [address] [place] [address] Assessment Encounter Date Assessment Date Assessment LastModified by Organization Details LastModified Time 10/31/2019 10/31/2019 Medication Changes Citalopram 10 mg APAP #3 Rozerem 8 mg CLARE obtained. Records requested. Will obtain labs at next visit to check kidneys, thyroid. Signs and symptoms of when to seek further care reviewed with patient. Patient to follow up with primary care provider or return to clinic for any worsening signs and symptoms. Always present to ER or Urgent Care with any progression of/alarming symptoms, significant changes in symptoms or any concerning or urgent matters. Patient verbalized agreement and understanding of treatment plan. F/U 4 weeks, sooner if needed [email or web address] Not available 11/01/2019 08:36:05 11/29/2019 11/29/2019 Medication Changes Labs obtained at visit. Signs and symptoms of when to seek further care reviewed with patient. Patient to follow up with primary care provider or return to clinic for any worsening signs and symptoms. Always present to ER or Urgent Care with any progression of/alarming symptoms, significant changes in symptoms or any concerning or urgent matters. Patient verbalized agreement and understanding of treatment plan. F/U 4 weeks, sooner if needed [email or web address] Not available 11/29/2019 17:35:02 02/20/2020 02/20/2020 Medication Changes Counseled patient to contact office if having Crohns exacerbation, so can do steroid taper vs trying to suffer it out. Signs and symptoms of when to seek further care reviewed with patient. Patient to follow up with primary care provider or return to clinic for any worsening signs and symptoms. Always present to ER or Urgent Care with any progression of/alarming symptoms, significant changes in symptoms or any concerning or urgent matters. Patient verbalized agreement and understanding of treatment plan. F/U 12 weeks, sooner if needed [email or web address] Not available 02/20/2020 09:10:01 08/05/2020 08/05/2020 Medication Changes Lunesta 1 mg (1-2 tabs) q HS PRN Prednisone taper Signs and symptoms of when to seek further care reviewed with patient. Patient to follow up with primary care provider or return to clinic for any worsening signs and symptoms. Always present to ER or Urgent Care with any progression of/alarming symptoms, significant changes in symptoms or any concerning or urgent matters. Patient verbalized agreement and understanding of treatment plan. F/U 12 weeks, sooner if needed [email or web address] Not available 08/05/2020 14:29:28 12/02/2020 12/02/2020 Medication Changes Budesonide can be titrated down to 2 capsules qD and down to 1 qD to see how tolerates. If increasing stool than needs to increase back up to 3 daily. Patient presented to office today for their Medicare Annual Wellness Visit. Education was provided on healthy nutrition, including a diet rich in fruits and vegetables, minimizing simple carbohydrates, salt, and saturated fats. Encouraged regular cardiovascular exercise such as walking at least 30 minutes daily, 5 times per week. Emphasized preventive health measures and educated pt on fall prevention and community-based lifestyle interventions to help reduce health risks and promote healthy living. Not available 12/02/2020 16:46:23 Plan of Treatment Reminders Order Date Submit Date Provider Last Modified By Organization Details Last Modified Time Details Appointments None recorded. Lab iron + TIBC + ferritin, serum 2020 021 EVONNE Not available 09:30:02 vitamin B12 + folate, serum or blood 2020 021 [email or web address] Not available 13:08:40 CBC 2020 021 EVONNE Not available 09:30:02 TSH + free T4, serum 2020 021 EVONNE Not available 09:30:02 CMP, serum or plasma 2020 021 [email or web address] Not available 05/19/202 1 13:08:39 CMP, serum or plasma 2019 020 EVONNE Not available 0 14:20:20 CBC w/ diff 2019 EVONNE Not available 0 17:22:01 magnesium, blood 2019 EVONNE Not available 0 17:22:01 TSH + free T4, serum 2019 [email or web address] Not available 0 17:22:01 Referral None recorded. Procedures None recorded. Surgeries None recorded. Imaging None recorded. Medication Orders Lunesta 1 mg tablet [address] [place], [address], 1 17:56:38 Euthyrox 50 mcg tablet 2020 021 [facility] [address] [place], [address], 1 16:54:[address] - ER 3 mg capsule,de layed,exte nded release 2020 021 [facility] [address] [place], [address], 1 16:54:31 prednisone 10 mg tablet [address] [place], [address], 1 13:09:14 Rozerem 8 mg tablet [address] [place], [address], 1 14:21:49 acetaminop hen 300 mg-codeine 30 mg tablet [address] [place], [address], 1 16:44:00 citalopram 10 mg tablet [address] [facility] [address] [facility] [address] [place], [address], 1 14:20:53 Euthyrox 50 mcg tablet 2019 INTERFACE [facility] [address] [place], [address], 0 09:08:[address] - ER 3 mg capsule,de layed,exte nded release 2019 [facility] [address] [place], [address], 0 09:08:17 acetaminop hen 300 mg-codeine 30 mg tablet [address] [facility] [address] [place], [address], 1 16:44:00 acetaminop hen 300 mg-codeine 30 mg tablet [address] [facility] [address] [place], [address], 1 16:44:00 acetaminop hen 300 mg-codeine 30 mg tablet [address] [facility] [address] [place], [address], 1 16:44:00 Rozerem 8 mg tablet [address] [facility] [address] [place], [address], 1 14:21:49 citalopram 10 mg tablet [address] [facility] [address] [place], [address], 14:20:53 Patient TargetsNo targets recorded. Patient Instructions Encounter Date Encounter Id Patient Instructions Last Modified By Organization Details Last Modified Time 12/02/[id number] advance care planning: care instructions [email or web address] Not available 12/02/2020 16:46:24 exercise program : getting started [email or web address] Not available 12/02/2020 16:46:24 Reason for Referral None Reported. Results Created Date Observation Date Name Description Value Unit Range Abnormal Flag Note LastModifiedBy Organization Detail LastModifiedTime 11/29/1911/30/2019 magne sium, serum or plasm a magnesium 1.8 mg/dL 1.5-2. 5 normal Not Available [employer] [address] [address] [place], [address], 11/30/2019 14:20:19 11/29/1911/30/2019 CMP, serum or plasm a glucose 87 mg/dL 65-139 normal Non-f astin g refer ence inter [email or web address] Not Available [employer] [address] [address] [place], [address], 11/30/2019 14:20:20 11/29/1911/30/2019 CMP, serum or plasm a urea nitrogen (BUN) 13 mg/dL 7-25 normal Not Available [employer] [address] [address] [place], [address], 11/30/2019 14:20:20 11/29/1911/30/2019 CMP, serum or plasm a creatinine 0.77 mg/dL 0.60-0 .93 normal For patie nts >49 years of age, the refer ence limit for Creat inine is appro ximat lissy 13% highe r for peopl e ident ified as Afric an-Am karley n. Not Available [facility] [address] [address] [place], [address], 11/30/2019 14:20:20 11/29/1911/30/2019 CMP, serum or plasm a eGFR non-afr. belarusian 73 mL/mi n/1.7 3m2 > or = 60 normal Not Available [address], [address], 11/30/2019 14:20:20 11/29/19 20 11/30/2019 CMP, serum or plasm a eGFR 85 mL/mi n/1.7 3m2 > or = 60 normal Not Available [address], [address], 11/30/2019 14:20:20 11/29/19 20 11/30/2019 CMP, serum or plasm a BUN/creatini ne ratio NOT APPLIC ABLE (calc ) 6-22 Not Available [address], [address], 11/30/2019 14:20:20 11/29/19 20 11/30/2019 CMP, serum or plasm a sodium 138 mmol/ L 135-14 6 normal Not Available [address], [address], 11/30/2019 14:20:20 11/29/19 20 11/30/2019 CMP, serum or plasm a potassium 4.5 mmol/ L 3.5-5. 3 normal Not Available [address], [address], 11/30/2019 14:20:20 11/29/19 20 11/30/2019 CMP, serum or plasm a chloride 104 mmol/ L 98-110 normal Not Available [address], [address], 11/30/2019 14:20:20 11/29/19 20 11/30/2019 CMP, serum or plasm a carbon dioxide 26 mmol/ L 20-32 normal Not Available [address], [address], 11/30/2019 14:20:20 11/29/19 20 11/30/2019 CMP, serum or plasm a calcium 9.2 mg/dL 8.6-10 .4 normal Not Available [address] [address] [place], [address], 11/30/2019 14:20:20 11/29/19 20 11/30/2019 CMP, serum or plasm a protein, total 6.9 g/dL 6.1-8. 1 normal Not Available [address] [address] [place], [address], 11/30/2019 14:20:20 11/29/19 20 11/30/2019 CMP, serum or plasm a albumin 4.0 g/dL 3.6-5. 1 normal Not Available [address], [address], 11/30/2019 14:20:20 11/29/19 20 11/30/2019 CMP, serum or plasm a globulin 2.9 g/dL_ (calc ) 1.9-3. 7 normal Not Available [address], [address], 11/30/2019 14:20:20 11/29/19 20 11/30/2019 CMP, serum or plasm a albumin/glob ulin ratio 1.4 (calc ) 1.0-2. 5 normal Not Available [address], [address], 11/30/2019 14:20:20 11/29/19 20 11/30/2019 CMP, serum or plasm a bilirubin, total 0.9 mg/dL 0.2-1. 2 normal Not Available [address] [address] [place], [address], 11/30/2019 14:20:20 11/29/19 20 11/30/2019 CMP, serum or plasm a alkaline phosphatase 60 U/L 37-153 normal Not Available [facility] [address] [address] [place], [address], 11/30/2019 14:20:20 11/29/19 20 11/30/2019 CMP, serum or plasm a AST 15 U/L 10-35 normal Not Available [address], [address], 11/30/2019 14:20:20 11/29/19 20 11/30/2019 CMP, serum or plasm a ALT 11 U/L 6-29 normal Not Available [address], [address], 11/30/2019 14:20:20 11/29/19 20 11/30/2019 TSH, serum or plasm a TSH w/reflex to FT4 0.76 mIU/L 0.40-4 .50 normal Not Available [address], [address], 11/30/2019 14:20:21 11/29/1911/30/2019 CBC w/ auto diff white blood cell count 7.4 thous and/u L 3.8-10 .8 normal Not Available [address], [address], 11/30/2019 14:21:16 11/29/1911/30/2019 CBC w/ auto diff red blood cell count 4.64 sam on/uL 3.80-5 .10 normal Not Available [address], [address], 11/30/2019 14:21:16 11/29/1911/30/2019 CBC w/ auto diff hemoglobin 13.4 g/dL 11.7-1 5.5 normal Not Available [address], [address], 11/30/2019 14:21:16 11/29/1911/30/2019 CBC w/ auto diff hematocrit 40.2 % 35.0-4 5.0 normal Not Available [address], [address], 11/30/2019 14:21:16 11/29/19 20 11/30/2019 CBC w/ auto diff MCV 86.6 fL 80.0-1 00.0 normal Not Available [address], [address], 11/30/2019 14:21:16 11/29/19 20 11/30/2019 CBC w/ auto diff MCH 28.9 pg 27.0-3 3.0 normal Not Available [address], [address], 11/30/2019 14:21:16 11/29/1911/30/2019 CBC w/ auto diff MCHC 33.3 g/dL 32.0-3 6.0 normal Not Available [address], [address], 11/30/2019 14:21:16 11/29/19 20 11/30/2019 CBC w/ auto diff RDW 14.2 % 11.0-1 5.0 normal Not Available [address], [address], 11/30/2019 14:21:16 11/29/1911/30/2019 CBC w/ auto diff platelet count 191 thous and/u L 140-40 0 normal Not Available [address], [address], 11/30/2019 14:21:16 11/29/1911/30/2019 CBC w/ auto diff MPV 11.2 fL 7.5-12 .5 normal Not Available [address], [address], 11/30/2019 14:21:16 11/29/1911/30/2019 CBC w/ auto diff absolute neutrophils 3656 cells /uL 1500-7 800 normal Not Available [address], [address], 11/30/2019 14:21:16 11/29/1911/30/2019 CBC w/ auto diff absolute lymphocytes 3071 cells /uL 850-39 00 normal Not Available [address], [address], 11/30/2019 14:21:16 11/29/1911/30/2019 CBC w/ auto diff absolute monocytes 503 cells /uL 200-95 0 normal Not Available [address] [place], [address], 11/30/2019 14:21:16 11/29/1911/30/2019 CBC w/ auto diff absolute eosinophils 118 cells /uL 15-500 normal Not Available [address], [address], 11/30/2019 14:21:16 11/29/1911/30/2019 CBC w/ auto diff absolute basophils 52 cells /uL 0-200 normal Not Available [address], [address], 11/30/2019 14:21:16 11/29/1911/30/2019 CBC w/ auto diff neutrophils 49.4 % normal Not Available [address], [address], 11/30/2019 14:21:16 11/29/1911/30/2019 CBC w/ auto diff lymphocytes 41.5 % normal Not Available [address], [address], 11/30/2019 14:21:16 11/29/1911/30/2019 CBC w/ auto diff monocytes 6.8 % normal Not Available [address], [address], 11/30/2019 14:21:16 11/29/1911/30/2019 CBC w/ auto diff eosinophils 1.6 % normal Not Available [address], [address], 11/30/2019 14:21:16 11/29/19 20 11/30/2019 CBC w/ auto diff basophils 0.7 % normal Not Available [address], [address], 11/30/2019 14:21:16 08/06/19 21 08/06/2020 iron + total iron- nellie ng capac ity (TIBC ), serum iron, total 57 mcg/d L 45-160 normal Not Available [address], [address], 08/06/2020 08:09:37 08/06/1908/06/2020 iron + total iron- nellie ng capac ity (TIBC ), serum iron binding capacity 251 mcg/d L_(ca lc) 250-45 0 normal Not Available [address], [address], 08/06/2020 08:09:37 08/06/1908/06/2020 iron + total iron- nellie ng capac ity (TIBC ), serum % saturation 23 %_(ca lc) 16-45 normal Not Available [address], [address], 08/06/2020 08:09:37 08/06/1908/06/2020 CBC w/ auto diff white blood cell count 7.9 thous and/u L 3.8-10 .8 normal Not Available [address], [address], 08/06/2020 08:09:33 08/06/1908/06/2020 CBC w/ auto diff red blood cell count 4.79 sam on/uL 3.80-5 .10 normal Not Available [address], [address], 08/06/2020 08:09:33 08/06/19 21 08/06/2020 CBC w/ auto diff hemoglobin 13.5 g/dL 11.7-1 5.5 normal Not Available [address], [address], 08/06/2020 08:09:33 08/06/19 21 08/06/2020 CBC w/ auto diff hematocrit 41.1 % 35.0-4 5.0 normal Not Available [address], [address], 08/06/2020 08:09:33 08/06/1908/06/2020 CBC w/ auto diff MCV 85.8 fL 80.0-1 00.0 normal Not Available [address], [address], 08/06/2020 08:09:33 08/06/19 21 08/06/2020 CBC w/ auto diff MCH 28.2 pg 27.0-3 3.0 normal Not Available [address], [address], 08/06/2020 08:09:33 08/06/19 21 08/06/2020 CBC w/ auto diff MCHC 32.8 g/dL 32.0-3 6.0 normal Not Available [address], [address], 08/06/2020 08:09:33 08/06/19 21 08/06/2020 CBC w/ auto diff RDW 13.2 % 11.0-1 5.0 normal Not Available [address], [address], 08/06/2020 08:09:33 08/06/19 21 08/06/2020 CBC w/ auto diff platelet count 216 thous and/u L 140-40 0 normal Not Available [address], [place], [address], 08/06/2020 08:09:33 08/06/19 21 08/06/2020 CBC w/ auto diff MPV 11.5 fL 7.5-12 .5 normal Not Available [facility] [address], [address], 08/06/2020 08:09:33 08/06/19 21 08/06/2020 CBC w/ auto diff absolute neutrophils 3832 cells /uL 1500-7 800 normal Not Available [facility] [address], [address], 08/06/2020 08:09:33 08/06/19 21 08/06/2020 CBC w/ auto diff absolute lymphocytes 3389 cells /uL 850-39 00 normal Not Available [address], [address], 08/06/2020 08:09:33 08/06/19 21 08/06/2020 CBC w/ auto diff absolute monocytes 466 cells /uL 200-95 0 normal Not Available [address], [address], 08/06/2020 08:09:33 08/06/19 21 08/06/2020 CBC w/ auto diff absolute eosinophils 150 cells /uL 15-500 normal Not Available [address], [address], 08/06/2020 08:09:33 08/06/19 21 08/06/2020 CBC w/ auto diff absolute basophils 63 cells /uL 0-200 normal Not Available [address], [address], 08/06/2020 08:09:33 08/06/19 21 08/06/2020 CBC w/ auto diff neutrophils 48.5 % normal Not Available [address], [address], 08/06/2020 08:09:33 08/06/19 21 08/06/2020 CBC w/ auto diff lymphocytes 42.9 % normal Not Available [address], [address], 08/06/2020 08:09:33 08/06/19 21 08/06/2020 CBC w/ auto diff monocytes 5.9 % normal Not Available [address], [address], 08/06/2020 08:09:33 08/06/19 21 08/06/2020 CBC w/ auto diff eosinophils 1.9 % normal Not Available [address], [address], 08/06/2020 08:09:33 08/06/19 21 08/06/2020 CBC w/ auto diff basophils 0.8 % normal Not Available [address], [address], 08/06/2020 08:09:33 08/06/19 21 08/06/2020 noel tin, serum or plasm a ferritin 40 NG/mL 16-288 normal Not Available [address], [address], 08/06/2020 08:09:39 08/06/19 21 08/06/2020 T4, free, serum T4, free 1.2 NG/dL 0.8-1. 8 normal Not Available [address], [address], 08/06/2020 08:09:39 08/06/1908/06/2020 TSH, serum or plasm a TSH 1.57 mIU/L 0.40-4 .50 normal Not Available [address], [address], 08/06/2020 08:09:39 Result Notes None recorded. Problems Name Problem SNOMED Code Status Onset Date Resolution Date Notes Provider Name and Address Organization Details Recorded Time Recurrent major depressive episodes, moderate 447992478 Active 2019 STEPHANIE Nation-BC, PMHNP-BC [address] [facility], [place], [address], [facility] 0 09:02:19 Osteoarthritis of multiple joints 756020097 Active 2019 STEPHANIE Nation-BC, PMHNP-BC [address] , [place], [address], [facility] 0 09:03:39 Insomnia 941998736 Active 2019 STEPHANIE Nation-BC, PMHNP-BC [address] [facility], [place], [address], [facility] 0 08:34:37 Hypothyroidism 45010322 Active 2019 STEPHANIE Nation-BC, PMHNP-BC [address] [facility], [place], [address], [facility] 0 08:35:43 Essential hypertension 12527236 Active 2019 STEPHANIE Nation-BC, PMHNP-BC [address] [facility], [place], [address], [facility] 0 09:08:11 SARS-CoV-2 Active 2020 SCAR NationP-BC, PMHNP-BC [address] [facility], [place], [address], [facility] 1 15:22:33 Problem Notes None recorded. Procedures Surgical History Date Name Laterality Status Provider Name and Address Organization Details Recorded Time cholecystectomy completed Stacy Reddy Antione [employer]-BC, PMHNP-BC [address] [place], [address], [facility] 10/31/2019 08:55:38 hemorrhoidectomy completed Stacy Sheldon Antione [employer]INATING PRODUCER-BC, PMHNP- [address] [place], [address], [facility] 10/31/2019 08:55:44 Hysterectomy completed Stacy Talbot [facility]- [address] [place], [address], [facility] 10/31/2019 08:55:52 Imaging Results None recorded. Procedure Notes None recorded. Medical Equipment None Reported. Allergies Allergen ID Allergen Name Allergen Category Reaction Reaction Severity Criticality Documentation Date Start Date Code Code System Note Provider Name and Address Organization Details Recorded Time 2787 latex environme nt,medica tion rash moderate Not available 10/26/2019 37447 91 RxNorm Stacy Talbot, [facility], [facility] [address] [place], [address], [facility] 0 19:05:36 Medications Name Sig Start Date Stop Date Status Note LastModified by Organization Details LastModified Time prednisone 10 mg tablet TAKE 6 TABLETS BY MOUTH ONCE DAILY IN THE MORNING FOR 3 DAYS THEN 5 TABS FOR 3 DAYS THEN 4 TABS FOR 3 DAYS THEN 3 TABS FOR 3 DAYS THEN TAKE 11/21 completed Not Available Not Available Not Available doxycycline hyclate 100 mg capsule 06/18 completed Not Available Not Available Not Available azithromyci n 250 mg tablet TAKE 2 TABLETS BY MOUTH ON DAY 1 AND THEN TAKE 1 TABLET BY MOUTH ONCE A DAY ON DAY 2 THROUGH DAY 5 05/27 completed Not Available Not Available Not Available citalopram 10 mg tablet TAKE 1 TABLET BY MOUTH ONCE DAILY 08/05 completed Not Available Not Available Not Available penicillin V potassium 500 mg tablet 10/25 completed Not Available Not Available Not Available melatonin 3 mg tablet Take 2 tablets every day by oral route at bedtime for 30 days. 06/18 completed Not Available Not Available Not Available acetaminoph en 300 mg-codeine 30 mg tablet TAKE 1 TABLET BY MOUTH TWICE DAILY NEEDED 12/02 completed Not Available Not Available Not Available famotidine 20 mg tablet TAKE 1 TABLET BY MOUTH TWICE DAILY 08/05 completed Not Available Not Available Not Available Vitamin C 1,000 mg tablet Take 1 tablet twice a day by oral route for 30 days. 06/18 completed Not Available Not Available Not Available temazepam 15 mg capsule 10/25 completed Not Available Not Available Not Available benzonatate 100 mg capsule TAKE 1 CAPSULE BY MOUTH THREE TIMES DAILY NEEDED 06/18 completed Not Available Not Available Not Available dexamethaso ne 2 mg tablet TAKE 3 TABLETS BY MOUTH ONCE DAILY FOR 10 DAYS 06/18 completed Not Available Not Available Not Available promethazin e 25 mg tablet TAKE 1 TABLET BY MOUTH THREE TIMES DAILY NEEDED FOR NAUSEA AND VOMITING 10/30 completed Not Available Not Available Not Available Euthyrox 50 mcg tablet TAKE 1 TABLET BY MOUTH ONCE DAILY IN THE MORNING AT LEAST 30 MINUTES BEFORE EATING AND/OR DRINKING. active Not Available Not Available No t Available zinc 50 mg tablet Take 1.5 tablets every day by oral route for 30 days. 06/18 completed Not Available Not Available Not Available budesonide DR - ER 3 mg capsule,del ayed,extend ed release TAKE 3 CAPSULES BY MOUTH ONCE DAILY active Not Available Not Available No t Available albuterol sulfate HFA 90 mcg/actuati on aerosol inhaler INHALE 2 PUFFS BY MOUTH EVERY 4 HOURS NEEDED 06/18 completed Not Available Not Available Not Available eszopiclone 1 mg tablet 08/07 completed Not Available Not Available Not Available ramelteon 8 mg tablet TAKE 1 TABLET BY MOUTH ONCE DAILY AT BEDTIME 08/05 completed Not Available Not Available Not Available cholecalcif natalia (vitamin D3) 125 mcg (5,000 unit) tablet Take 1 tablet every day by oral route for 30 days. 2020 active Not Available Not Available Not Avai lable Virtussin AC 10 mg-100 mg/5 mL oral liquid TAKE 5ML BY MOUTH EVERY 4 TO 6 HOURS NEEDED FOR COUGH 10/25 completed Not Available Not Available Not Available Belsomra 10 mg tablet Take 0.5 to 1 tablet orally HS PRN for sleep 12/02 completed Not Available Not Available Not Available Fluzone High-Dose 2019-20 (PF) 180 mcg/0.5 mL intramuscul ar syringe ADM 0.5ML IM UTD 10/25 completed Not Available Not Available Not Available Fluad Quad 0630-6956(6 5yr up)(PF) 60 mcg (15 mcg x 4)/0.5mL IM syringe PHARMACIS T ADMINISTE RED IMMUNIZAT ION ADMINISTE RED AT TIME OF DISPENSIN G 02/19 completed Not Available Not Available Not Available Vitals Date Recorded Body height Body temperature Oxygen saturation Oxygen saturation in Arterial blood by Pulse oximetry Heart rate Respiratory rate Body mass index (BMI) Body weight Systolic And Diastolic Provider Name and Address Organization Details Last Updated DateTime 1 162.56 cm 98.2 [degF] 98 % 98 % 84 /min 18 /min 18.5 kg/m2 83299.9 8 g 112/62 mm[Hg] MARQUISE PAYNE [facility] 1 16:44:15 Date Recorded Body height Body mass index (BMI) Body weight Heart rate Respiratory rate Oxygen saturation Oxygen saturation in Arterial blood by Pulse oximetry Body temperature Systolic And Diastolic Provider Name and Address Organization Details Last Updated DateTime 0 162.56 cm 18.7 kg/m2 91872.8 5 g 68 /min 18 /min 97 % 97 % 98.1 [degF] 138/70 mm[Hg] Blanche Quintanilla [facility] 0 08:55:27 Date Recorded Heart rate Respiratory rate Oxygen saturation Oxygen saturation in Arterial blood by Pulse oximetry Body temperature Systolic And Diastolic Provider Name and Address Organization Details Last Updated DateTime 0 61 /min 16 /min 95 % 95 % 97.1 [degF] 160/90 mm[Hg] Stacy Talbot, COORDINATING PRODUCER-, PMHNP-BC [address] [place], [address], [facility] [facility] 0 17:33:29 Date Recorded Body height Heart rate Respiratory rate Oxygen saturation Oxygen saturation in Arterial blood by Pulse oximetry Body temperature Systolic And Diastolic Provider Name and Address Organization Details Last Updated DateTime 1 162.56 cm 66 /min 20 /min 99 % 99 % 97.3 [degF] 122/80 mm[Hg] Desi Woody [facility] 1 16:50:52 Date Recorded Body height Body temperature Oxygen saturation Oxygen saturation in Arterial blood by Pulse oximetry Heart rate Respiratory rate Systolic And Diastolic Provider Name and Address Organization Details Last Updated DateTime 0 162.56 cm 98.2 [degF] 99 % 99 % 72 /min 16 /min 148/70 mm[Hg] Stacy Talbot, COORDINATING PRODUCER-BC, PMHNP-BC [address] [facility], [place], [address], [place] [facility] 0 09:01:52 Social History Question Answer Notes LastModified by [email or web address] Details LastModified Time Tobacco Smoking Status Former Smoker Not Available [employer] 01/15/2020 03:13:59 Do You Have An Advance Directive? Yes [id number] Information not available 01/15/2020 What Is Your Level Of Caffeine Consumption? Occasional [id number] Information not available 01/15/2020 How Much Tobacco Do You Chew? None [id number] Information not available 01/15/2020 Which Illicit Or Recreational Drugs Have You Used? None [id number] Information not available 01/15/2020 Single Or Multi-level Home/work? Single Level Home [email or web address] Information not available 11/01/2019 Live Alone Or With Others? Alone [email or web address] Information not available 11/01/2019 Marital Status [email or web address] Informatio n not available 11/01/2019 What Was The Date Of Your Most Recent Tobacco Screening? 10/31/2019 [id number] Information not available 01/15/2020 Sex: Unknown Functional Status Question Answer Note LastModified by [email or web address] Details LastModified Time What is your level of alcohol consumption? None [id number] Information not available 01/15/2020 Do you or have you ever used smokeless tobacco? Never used smokeless tobacco [id number] Information not available 01/15/2020 Are you able to walk independently without assistance or assistive devices? 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 Never used electronic cigarettes [id number] Information not available 01/15/2020 What is your exercise level? Occasional [id number] Information not available 01/15/2020 Mental Status None recorded. Family History Relationship Description Onset Age of this Age Resolved Age Notes LastModified by Organization Details LastModified Time Unspecified Relation Family history of stroke Grandp arent [email or web address] Not available 10/26/2019 20:32:56 Unspecified Relation Carcinoma of colon Grandp arent [email or web address] Not available 10/26/2019 20:33:13 Unspecified Relation Family history of diabetes mellitus [email or web address] Not available 2019 20:33:58 Unspecified Relation Family history of disorder of lung [email or web address] Not available 2019 20:34:09 Unspecified Relation Family history of Obesity [email or web address] Not available 2019 20:34:20 Unspecified Relation Family history of Eczema Not available 2019 20:34:35 Unspecified Relation Family history of alcoholism [email or web address] Not available 10/25 20:34:45 Unspecified Relation Family history of Cardiovascul ar disease [email or web address] Not available 10/25 20:34:57 Unspecified Relation Family history of congestive heart failure Not available 2019 20:35:08 Unspecified Relation Family history of malignant neoplasm Not available 2019 20:36:20 Unspecified Relation History of hypertension Siblin g Not available 10/26/2019 20:36:40 Unspecified Relation Family history of Allergy Not available 2019 20:37:06 Unspecified Relation Family history of osteoporosis [email or web address] Not available 09/2019 20:37:16 Father History of hypertension [email or web address] Not available 09/2019 20:33:48 Father Family member [email or web address] Not available 2019 20:35:22 Mother Family member [email or web address] Not available 2019 20:35:22 Mother History of hypertension [email or web address] Not available 09/2019 20:35:34 Mother Carcinoma of colon [email or web address] Not available 2019 20:35:44 Mother Family history of diabetes mellitus [email or web address] Not available 2019 20:35:56 Medical History Condition Response Insomnia Y Skin Diseases / Disorders Y Depression Y Gynecological HistoryNo gynecological history recorded. Obstetrics History GPAL:G 0 P 0 0 0 0 Immunizations Vaccine Type Date Status Note Provider Nam e and Address Organization Details Recorded Time Influenza, split virus, quadrivalent, preservative 9 completed [facility] [address] [place], [address], [facility] 10/26/2019 19:03:14 Influenza, split virus, quadrivalent, preservative 0 completed Stacy Talbot [facility], [facility] [address] [place], [address], [facility] 02/20/2020 09:05:36 Past Encounters Encounter ID Performer Location Encounter Start Date Encounter Closed Date Diagnosis/Indication Diagnosis SNOMED-CT Code Diagnosis ICD10 Code Diagnosis IMO Codes Diagnosis Note [id number] Stacy Talbot [facility], [facility] Main Office [address] [place] [address] 10/31/2019 07:19:05 11/01/2019 08:37:39 Recurrent major depressive episodes, moderate 239222744 F33.1 At this time patient is symptomati c; symptoms are unstable. Patient has fleeting suicidal ideations, but no homicidal ideation. Patient does not have a plan or the means. Plan to begin medication therapy . Plan to re-evaluat e patient at follow up; patient also referred to counseling services and community resources. Patient was advised to call or come in if symptoms worsen. Patient verbalized understand ing. Osteoarthr itis of multiple joints 406681098 M15.9 Given APAP #3 to help with exacerbati ons of pain. Insomnia 321495248 G47.0 0 Has tried a lot of things over the years for sleep. Will give Rozerem for sleep. Hypothyroidism 90262915 E03.9 Will obtain labs next visit to check levels. [id number] Stacy Talbot [facility], [facility] Main Office [address] [place] [address] 11/29/2019 06:20:45 11/29/2019 17:36:25 Recurrent major depressive episodes, moderate 538162655 F33.1 At this time patient is asymptomat ic; symptoms are stable. Patient has fleeting suicidal ideations, but no homicidal ideation. Patient does not have a plan or the means. Plan to continue current management . Plan to re-evaluat e patient at follow up; patient also referred to counseling services and community resources. Patient was advised to call or come in if symptoms worsen. Patient verbalized understand ing. Osteoarthr itis of multiple joints 584381488 M15.9 Given APAP #3 to help with exacerbati ons of pain which has helped when needing to take. Insomnia 697684740 G47.0 0 Had some reactions with Rozerem. Will cut down dosage when taking and try lower doses. Hypothyroidism 19056559 E03.9 Elevated blood-pressure reading without diagnosis of hypertension 980346394 R03.0 [id number] Stacy Talbot [facility], [facility] Main Office [address] [place] [address] 02/20/2020 05:23:59 02/20/2020 09:23:49 Recurrent major depressive episodes, moderate 779569453 F33.1 At this time patient is asymptomat ic; symptoms are stable. Patient has fleeting suicidal ideations, but no homicidal ideation. Patient does not have a plan or the means. Plan to continue current management . Plan to re-evaluat e patient at follow up; patient also referred to counseling services and community resources. Patient was advised to call or come in if symptoms worsen. Patient verbalized understand ing. Osteoarthr itis of multiple joints 616820825 M15.9 Given APAP #3 to help with exacerbati ons of pain which has helped when needing to take. Insomnia 660292685 G47.0 0 Had some reactions with Rozerem. Will cut down dosage when taking and try lower doses. Hypothyroidism 54841773 E03.9 Crohn's disease 51495846 K50.90 [id number] [facility] Main Office [address] [place] [address] 08/05/2020 07:22:17 08/06/2020 09:15:56 Insomnia 238765885 G47.00 Hypothyroidism 35001331 E03.9 Crohn's disease 11038597 K50.90 Anemia 460512137 D64.9 [id number] [facility] Main Office [address] [place] [address] 12/02/2020 15:12:28 12/02/2020 16:55:40 Adult health examination 028719665 Z00.01 Advance care planning 71 1847722 Z71.89 Exercises education, guidance, and counseling 366734949 Z71.82 Health Concerns Section Related Observation LastModified by Organization Detai ls LastModified Time None Recorded Concern Status LastModified by Organization Details LastModified Time None Recorded Advance Directives Directive Y: Payers Insurance Date Sequence Insurance Name Policy Number Policy Joyce Covered Member ID Joyce Member ID Guarantor Name 05/06/2021 1 [facility] (MEDICARE REPLACEMENT/A DVANTAGE - PPO) [id number] Stacie Gardner [id number] Stacie Gardner Notes Date Note Type Note Provider Name and Address Organization Details Recorded Time 10/31/19 20 text/htm l 79 yo female here to establish care. Was previously seeing Dr. Quintanilla. Patient reports she has had a couple of UC visit due to hives breaking out. Patient has been overwhelmed with stress d/t 's worsening dementia. Patient's stress increased with his recent psych hospitalization. She further reports she does more worrying about him that she has been oftening neglecting her health. She has not been sleeping and/or taking care of herself. Has been having increasing depression with some fleeting SI, but no plan. She has increasing depression, but has not sought help until now. OA - has had increasing pain of multiple joints, but a lot more increasing back pain. Patient has done OTC APAP and NSAIDs which hasn't been helping with managing pain. Pain - when patient has flare-ups of Crohn's she is unable to take anything and with the increases in stress she has been having more frequent flare-ups. Stacy Talbot, COORDINATING PRODUCER-, PMHNP- [address] [place], [address], [place] [facility] 11/01/2019 08:36:50 11/29/19 20 text/htm l 79 yo female here for follow up visit. MDD - Started on Citalopram last visit for increasing depression which has helped. Patient has been doing better with symptoms and feelings. Denies SI/HI. OA - has had increasing pain of multiple joints, but a lot more increasing back pain. Patient has done OTC APAP and NSAIDs which hasn't been helping with managing pain. APAP #3 was given and patient has been doing much better with pain. Pain - when patient has flare-ups of Crohn's she is unable to take anything and with the increases in stress she has been having more frequent flare-ups. Insomnia - Had taken full tablet and had some issues with full strength. However, patient was taking and not being able to devote 8 hours to sleep. Stacy Talbot, COORDINATING PRODUCER-, [facility]- [address] [place], [address], [facility] 11/29/2019 17:36:07 02/20/20 20 text/htm l Stacie is here for follow up visit. MDD - compliant with medications. Denies SI/HI. OA - has had increasing pain of multiple joints, but a lot more increasing back pain. Patient has done OTC APAP and NSAIDs which hasn't been helping with managing pain. APAP #3 was given and patient has been doing much better with pain when she takes it. Pain - when patient has flare-ups of Crohn's she is unable to take anything and with the increases in stress she has been having more frequent flare-ups. Insomnia - Had taken full tablet and had some issues with full strength. However, patient was taking and not being able to devote 8 hours to sleep. Stacy Talbot, COORDINATING PRODUCER-, [facility]- [address] [place], [address], [facility] 02/20/2020 09:23:23 08/06/19 21 text/htm l InsomniaReported by PatientHPIFor severity, patient reportsworsening. For quality, patient reportssymptoms worse in the evening. For duration, patient reportsfrequent. For onset/timing, patient reportsgradual onset. For associated symptoms, patient reportsno anxiety,no snoring,no depression,no known sleep apnea,no pain,no dyspnea,no urinary frequency, andlegs do not feel restless. DiarrheaReported by PatientHPIFor quality, patient reportsworsening. For aggravating factors, patient reportsstress. For associated symptoms, patient reportscrampingandbloatingbut reportsno abdominal pain,no excess gas,no fever,no rash,no joint pain,no weight loss,no nausea,no vomiting,no heartburn,no blood in stool,no mucus in stool,no black or tarry stools,no weakness, andno nutrient deficiency. For severity, patient reportsmoderate. For duration, patient reportspresent for 1 month. For onset/timing, patient reports4-10 times a day. For context, patient reportsno one else with similar symptoms,no recent camping,no recent picnic,no possible food sources, andno recent travel. Stacy Talobt, COORDINATING PRODUCER-BC, PMHNP-BC [address] [place], [address], [facility] 08/05/2020 16:54:12 12/03/19 21 text/htm l Medicare Annual Wellness VisitReported by PatientSocial/Behavioral HistoryFor diet and nutrition, patient reportslow calcium intakebut reportsdiscussed vitamin and supplement use,discussed portion control,discussed maintaining calcium balance, anddiscussed diet improvement. For physical activity, patient reportsdoes not exercise on a regular basis,decreased physical activity,poor physical condition, anddeconditioned due to sedentary lifestyle. For fracture risk, patient reportsno recent explained fracture,no sudden unexplained fractures, andno previous musculoskeletal injuries.Mental Status:For depression risk, patient reportssignificant changes in weightandsleep disturbances or insomniabut reportsnever feels sad, empty, or tearful,no loss of interest in activities,no agitation,no loss of energy,no feelings of worthlessness or guilt,no thoughts of suicide,no history of depression, andno history of mood disorders. For concentration and memory, patient reportsdecreased concentrating ability (s/p covid)but reportsno memory lapses or lossanddoes not forget words. For orientation, patient reportsno disorientation to time,no disorientation to date, andno disorientation to place. For speech/motor difficulties, patient reportsno speech difficulties,no difficulty expressing formulated concepts,no difficulty with fine manipulative tasks,no difficulty writing/copying,no slowed reaction time, anddoes not knock things over when trying to pick them up.Functional AbilityFor activities of daily living, patient reportsunable to contol urination and bowelsbut reportsable to bathe with limited or no assistance,able to dress with limited or no assistance,able to feed self with limited or no assistance,able to get out of chair or bed with limited or no assistance,able to groom with limited or no assistance, andable to toilet with limited or no assistance. For hearing, patient reportswears hearing aids. For vision, patient reportsno vision problems. For instrumental activities of daily living, patient reportsable to do house work with limited or no assistance,able to grocery shop with limited or no assistance,able to manage medications with limited or no assistance,able to manage money with limited or no assistance,able to prepare meals with limited or no assistance, andable to use the phone with limited or no assistance. For falls risk assessment, patient reportsno frequent falls while walking,no fall since last visit, andno dizziness/vertigo. For home safety, patient reportsno unsafe lit hazzards,no unsafe stairs,no unsafe gas appliances,working smoke/co detectors,use of seatbelts,no fire arms,has hand bars in the bathroom/shower, andgood lighting in the home. Stacy Talbot, COORDINATING PRODUCER-BC, PMHNP-BC [address] [place], [address], [facility] 12/02/2020 16:52:22 OBGyn Episode No OBEpisode recorded.
--- OUTSIDE RECORDS SUMMARY | 2025-01-15 17:20 | XMS_ITS | Clinical Summary ---
Author Organization [facility] [address] Address [address] [place] [address] Care Team Providers Care Eligibility Specialist Name Role Phone Jose Manuel Burk MD Primary Care Provider Allergies Active Allergy Reactions Criticality Noted Date Comments Latex Rash Medium 10/14/2019 Medications No known medications Active Problems No known active problems Social History Tobacco Use Types Packs/Day Years Used Date Smoking Tobacco: Never Assessed Comments Unknown Sex and Gender Information Value Date Recorded Sex Assigned at Not on file Legal Sex Female 1:38 AM [employer]IAN TE[employer] Gender Identity Not on file Sexual Orientation Not on file Obstetrics History Last Filed Vital Signs Vital Sign Reading Time Taken Comments Blood Pressure 142/76 10/29/2021 4:25 PM CDT Pulse 66 10/29/2021 4:25 PM CDT Temperature 37.1 C (98.7 F) 10/29/2021 4:25 PM CDT Respiratory Rate 14 10/29/2021 4:25 PM CDT Oxygen Saturation 99% 10/29/2021 4:25 PM CDT Inhaled Oxygen Concentration - - Weight 49.4 kg (109 lb) 10/29/2021 4:25 PM CDT Height 162.6 cm (5' 4) 10/29/2021 4:25 PM CDT Body Mass Index 18.71 10/29/2021 4:25 PM CDT Plan of Treatment Health Maintenance Due Date Last Done Comments Depression Screening 1940 Fall Risk Assessment 1940 Osteoporosis Screening-Bone Density Scan 1940 DTaP/Tdap/Td Vaccine (1 - Tdap) 08/16/1951 Hepatitis B Screening 1958 Well Visit 65+ 2005 Pneumococcal vaccine 65+ (2 of 2 - PCV20 or PCV21) 02/19/2022 02/19/2021 Covid-19 Vaccine (4 - 2024-2 6 season) 2024 01/14/2021, 05/23/2020, 05/03/2020 Influenza Vaccine (#1) 2024 , 12/08/2020, 12/21/2019, Additional history exists Zoster Vaccine Completed 10/04/2017, 07/05/2017 Insurance [facility] MEDICARE [facility] Address: [address] [address] [place] [address] Care Teams Eligibility Specialist Relationship Specialty Start Date End Date Jose Manuel Burk MD PCP - General Internal Medicine 10/29/21
--- OUTSIDE RECORDS SUMMARY | 2025-01-15 17:20 | XMS_ITS | Encounter Summary ---
Author Organization [facility] Address Replaced by [facility] [place] [address] Care Team Providers Care Splitting Machine Tender Name Role Phone Socorro Thorpe MD Primary Care Provider [phone] Encounter Details Date Type Department Care Team (Latest Contact Info) Description 01/24/2018 Abstract [facility] , Charles Lind MD Social History Tobacco Use Types Packs/Day Years Used Date Smoking Tobacco: Every Day Cigarettes Smokeless Tobacco: Never Alcohol Use Standard Drinks/Week Comments No 0 (1 standard drink = 0.6 oz pur e alcohol) Comments No Sex and Gender Information Value Date Recorded Sex Assigned at Not on file Legal Sex Female 7:42 PM CDT Gender Identity Not on file Sexual Orientation Not on file documented as of this encounter Plan of Treatment Not on file documented as of this encounter Visit Diagnoses Not on filedocumented in this encounter Care Teams Splitting Machine Tender Relationship Specialty Start Date End Date Socorro Thorpe MD [address] [address] [place] [address] PCP - General FAMILY PRACTICE 08/02/17 documented as of this encounter
--- OUTSIDE RECORDS SUMMARY | 2025-01-15 17:20 | XMS_ITS | Clinical Summary ---
Author Organization [facility] Address [address] [place] [address] Care Team Providers Care Map Drafter Name Role Phone Qasim Tong MD Primary Care Provider + [phone] [facility],non-owned Affiliates and Associated Physician Practices is amultiple site organization consisting of ambulatory clinics and hospital sitesin [place], [place], [place] and [place]. This disclosure is being madepursuant to the Care Everywhere program and may not contain all information available regarding this patient. Last updated 17.[facility] [employer] Allergies Active Allergy Reactions Criticality Noted Date Comments Latex Rash Medium 10/14/2019 Medications * Be aware that medications may not be up to date on this document. Alwaysverify current medications with the patient. BUDESONIDE PO Active Levothyroxine Sodium (LEVOTHROID PO) Acti ve predniSONE (DELTASONE) 10 MG tablet Take by mouth with food: 50mg (5 tablets) on day 1, 40mg (4 tablets) on day 2, 30mg (3 tablets) on day 3, 20mg (2 tablets) on day 4, 10 mg (1 tablet) on day 5 15 tablet 10/14/2019 Active Social History Tobacco Use Types Packs/Day Years Used Date Smoking Tobacco: Former Smokeless Tobacco: Never Comments Unknown Sex and Gender Information Value Date Recorded Sex Assigned at Not on file Legal Sex Female 6:18 AM CDT Gender Identity Not on file Sexual Orientation Not on file Last Filed Vital Signs Vital Sign Reading Time Taken Comments Blood Pressure 100/64 10/14/2019 11:07 AM CDT Pulse 65 10/14/2019 11:07 AM CDT Temperature 37 C (98.6 F) 10/14/2019 11:07 AM CDT Respiratory Rate 16 10/14/2019 11:07 AM CDT Oxygen Saturation 96% 10/14/2019 11:07 AM CDT Inhaled Oxygen Concentration - - Weight 50.8 kg (112 lb) 10/14/2019 11:07 AM CDT Height 162.6 cm (5' 4) 10/14/2019 11:07 AM CDT Body Mass Index 19.22 10/14/2019 11:07 AM CDT Plan of Treatment Health Maintenance Due Date Last Done Comments BONE DENSITY TESTING 1940 DTAP/TDAP/TD VACCINES (1 - Tdap) 08/16/1959 PNEUMOCOCCAL VACCINE 50+ (1 of 1 - PCV) 1990 ZOSTER VACCINE (1 of 2) 1990 Respiratory Syncytial Virus (RSV) Vaccine Pt: or over 60 yrs (1 - 1-dose 75+ series) 08/16/2015 DEPRESSION SCREENING 03/21/2024 COVID-19 VACCINE (1 - 2023-2 5 season) 2024 INFLUENZA VACCINE (#1) 2024 HEPATITIS B VACCINE Aged Out No longe r eligible based on patient's age to complete this topic HIB VACCINE Aged Out No longer eligi ble based on patient's age to complete this topic HPV VACCINE Aged Out No longer eligi ble based on patient's age to complete this topic MENINGOCOCCAL (Group B) VACC INE SHARED DECISION-MAKING Aged Out No longer eligibl e based on patient's age to complete this topic MENINGOCOCCAL GROUPS A/C/Y/W VACCINE Aged Out No longer eligible b ased on patient's age to complete this topic Insurance [facility] MANAGED MEDICARE ADV [facility] MANAGED MEDICARE ADV Care Teams Map Drafter Relationship Specialty Start Date End Date Qasim Tong MD [facility] [facility] [address] [place] [address] PCP - General 04/24/20
== END 2025-01-15 14:58 | disposition home or self-care (01) ==
PROVIDERS: PCP Internal Medicine; Visit Provider Internal Medicine
DX: C91.10 Chronic lymphocytic leukemia of B-cell type not having achieved remission (principal); I10 Essential (primary) hypertension
CPT/HCPCS: 88271; 88275